=== PATIENT | male | born 1945 | race Caucasian/White ===

== ENCOUNTER 2020-02-06 08:42 | Outpatient (REF) | payer MEDICARE, SELFPAY ==
--- NOTE | 2020-02-06 | US_ITS ---
EXAMINATION: US COMPLETE ABDOMEN WITH LIVER ELASTOGRAPHY CLINICAL INFORMATION: NAFLD. COMPARISON: CT abdomen and pelvis 12/29/2006 TECHNIQUE: Real-time imaging of the abdominal viscera. Noninvasive ultrasound liver fibrosis assessment is performed using Jane ElastPQ point quantification shear wave elastography (pSWE) with a 5 MHz transducer. Multiple elastography samples are obtained. FINDINGS: PANCREAS: Normal. The visualized pancreatic head and body are normal in appearance. The remainder of the pancreas is obscured from visualization by the overlying bowel gas. ABDOMINAL AORTA: The proximal, middle and distal aortic segments are normal in caliber. INFERIOR VENA CAVA: Visualized portions are normal. LIVER: The liver demonstrates normal size, contour and increased echogenicity with areas of focal fatty sparing. No focal lesion or intrahepatic biliary duct dilatation. The right lobe measures 15.0 cm in length. The left lobe measures 13.4 cm in length. There is normal hepatopedal flow seen in the portal vein on Doppler exam. Shear wave elastography provides a median stiffness of 1.09 m/s (reference: normal median stiffness is 0.81 - 1.22 m/s). The IQR/median stiffness to assess sampling precision is 0.47 (reference: optimal IQR/median stiffness is under 0.3). GALLBLADDER: Normal. The gallbladder is physiologically distended without evidence of stones, sludge, polyps, wall thickening, or pericholecystic fluid. COMMON BILE DUCT: Normal in caliber measuring 0.8 cm in diameter. RIGHT KIDNEY: There is an anechoic cyst in the upper pole measuring 1.2 x 1.3 x 1.5 cm. No hydronephrosis. No renal calculi or focal parenchymal lesions. The kidney measures 11.5 cm in maximum dimension. LEFT KIDNEY: There is an anechoic cyst in the upper pole measuring 0.6 x 0.4 x 0.6 cm. No hydronephrosis. No renal calculi or focal parenchymal lesions. The kidney measures 12.3 cm in maximum dimension. SPLEEN: Normal. The spleen measures 9.1 cm in maximum dimension. FREE FLUID: None. IMPRESSION: 1. Diffuse hepatic steatosis with focal areas of fatty sparing. 2. Bilateral renal cysts without echogenic calculi or hydronephrosis. 3. Elastography: Liver elastography measurements are within normal (METAVIR Stage F0).
[2020-02-06 12:27] LABS: Anion Gap 10 (12-20); Blood Urea Nitrogen 10 mg/dL (9-16); Calcium 8.9 mg/dL (8.4-10.2); Carbon Dioxide 31 mmol/L (22-29); Chloride 103 mmol/L (96-108); Cholesterol 114 mg/dL; Estimated Glomerular Filt Rate > 60; Glucose Random 100 mg/dL (60-115); HDL Cholesterol 53 mg/dL; LDL Cholesterol Calculated 51 mg/dl; Potassium 4.4 mmol/l (3.3-5.1); Sodium 140 mmol/L (135-145); Triglycerides 51 mg/dL
[2020-02-06 12:33] LABS: Creatinine Urine 102.72 mg/dL; Microalbumin Urine < 5.0 mg/L
== END 2020-02-06 08:43 | disposition home or self-care (01) ==
LOC: HO.US 08:42
PROVIDERS: PCP Nurse Practitioner Family; Visit Provider Physician Assistant
DX: K76.0 Fatty (change of) liver, not elsewhere classified (principal)
CPT/HCPCS: 76705; 76981; 80048; 80061; 82043

== ENCOUNTER → 2020-05-12 08:43 | Outpatient (BNVA) | payer MEDICARE, SELFPAY | PROVIDERS: PCP Nurse Practitioner Family; Visit Provider Physician Assistant | DX: E80.6 Other disorders of bilirubin metabolism (principal) | CPT/HCPCS: 99212 ==

== ENCOUNTER 2020-08-11 10:58 | Outpatient (REF) | payer MEDICARE, SELFPAY ==
[2020-08-11 13:55] LABS: MANUAL DIFF FLAG NO
[2020-08-11 14:02] LABS: Basophils Absolute Auto 0.1 X10*3/uL (0.0-0.2); Basophils Percent Auto 0.8 % (0-2); Eosinophils Absolute Auto 0.2 X10*3/uL (0.0-0.4); Eosinophils Percent Auto 2.7 % (0-4); Hematocrit 44.6 % (42-52); Hemoglobin 14.5 g/dl (14.0-18.0); Imm Gran Abs Auto 0.02 X10*3/uL (0.00-0.03); Imm Gran Pct Auto 0.3 % (0.0-0.4); Lymphocytes Absolute Auto 1.5 X10*3/uL (1.2-4.9); Lymphocytes Percent Auto 19.4 % (20-40); Mean Corpuscular HGB Conc 32.5 g/dl (31.0-36.0); Mean Corpuscular Hemoglobin 30.3 pg (27.0-33.0); Mean Corpuscular Volume 93.3 fL (80-98); Mean Platelet Volume 10.3 fL (9.4-12.4); Monocytes Absolute Auto 0.6 X10*3/uL (0.1-1.2); Monocytes Percent Auto 7.6 % (2-11); Neutrophils Absolute Auto 5.2 X10*3/uL (2.0-8.3); Neutrophils Percent Auto 69.2 % (45-73); Platelet Count 276 X10*3/uL (160-400); Red Blood Count 4.78 X10*6/uL (4.60-5.80); Red Cell Distribution Width 12.9 % (11.0-16.0); White Blood Count 7.5 X10*3/uL (4.8-10.8)
[2020-08-11 14:16] LABS: Estimated Average Glucose 105 mg/dL; Hemoglobin A1c % 5.3 %
[2020-08-11 14:38] LABS: Alanine Aminotransferase 15 U/L (0-40); Albumin Level 4.2 g/dL (3.5-5.0); Alkaline Phosphatase 65 U/L (39-117); Anion Gap 14 (12-20); Aspartate Amino Transferase 18 U/L (5-37); Bilirubin Total 1.5 mg/dL (0.0-1.0); Blood Urea Nitrogen 10 mg/dL (9-16); Carbon Dioxide 27 mmol/L (22-29); Chloride 103 mmol/L (96-108); Cholesterol 117 mg/dL; Estimated Glomerular Filt Rate > 60; Glucose Fasting 106 mg/dL (60-99); HDL Cholesterol 55 mg/dL; LDL Cholesterol Calculated 52 mg/dl; Potassium 4.2 mmol/L (3.3-5.1); Sodium 140 mmol/L (135-145); Total Protein 7.2 g/dL (6.5-8.0); Triglycerides 50 mg/dL
[2020-08-11 14:50] LABS: Bilirubin Direct 0.7 mg/dL (0.0-0.5)
[2020-08-11 15:05] LABS: TSH reflex Free T4 0.54 uIU/mL (0.32-4.0)
== END 2020-08-11 10:59 | disposition home or self-care (01) ==
LOC: HO.HMGCLDS 10:58
PROVIDERS: PCP Nurse Practitioner Family; Visit Provider Physician Assistant
DX: R10.11 Right upper quadrant pain (principal); E11.9 Type 2 diabetes mellitus without complications; E80.6 Other disorders of bilirubin metabolism; R74.01 Elevation of levels of liver transaminase levels
CPT/HCPCS: 36415; 80053; 80061; 82248; 83036; 84443; 85025

== ENCOUNTER → 2020-08-25 08:17 | Outpatient (BNVA) | payer MEDICARE, SELFPAY | PROVIDERS: Visit Provider Physician Assistant | DX: Z13.89 Encounter for screening for other disorder (principal) | CPT/HCPCS: 99212 ==

== ENCOUNTER 2020-10-29 08:35 | Outpatient (REF) | payer MEDICARE, SELFPAY ==
[2020-10-29 12:23] LABS: Prostate Specific Antigen Scr 1.06 ng/mL (<0.05-4.0)
== END 2020-10-29 08:36 | disposition home or self-care (01) ==
LOC: HO.HMGCLDS 08:35
PROVIDERS: PCP Nurse Practitioner Family; Visit Provider Nurse Practitioner Family
DX: Z12.5 Encounter for screening for malignant neoplasm of prostate (principal)
CPT/HCPCS: 36415; 84153

== ENCOUNTER 2020-11-24 11:08 | Outpatient (REF) | payer MEDICARE, SELFPAY ==
[2020-11-24 14:09] LABS: MANUAL DIFF FLAG NO
[2020-11-24 14:15] LABS: Basophils Absolute Auto 0.1 X10*3/uL (0.0-0.2); Basophils Percent Auto 0.8 % (0-2); Eosinophils Absolute Auto 0.2 X10*3/uL (0.0-0.4); Eosinophils Percent Auto 3.6 % (0-4); Hematocrit 42.1 % (42-52); Hemoglobin 13.6 g/dl (14.0-18.0); Imm Gran Abs Auto 0.02 X10*3/uL (0.00-0.03); Imm Gran Pct Auto 0.3 % (0.0-0.4); Lymphocytes Absolute Auto 1.4 X10*3/uL (1.2-4.9); Lymphocytes Percent Auto 22.2 % (20-40); Mean Corpuscular HGB Conc 32.3 g/dl (31.0-36.0); Mean Corpuscular Volume 92.9 fL (80-98); Mean Platelet Volume 10.7 fL (9.4-12.4); Monocytes Absolute Auto 0.5 X10*3/uL (0.1-1.2); Monocytes Percent Auto 8.1 % (2-11); Platelet Count 249 X10*3/uL (160-400); Red Blood Count 4.53 X10*6/uL (4.60-5.80); Red Cell Distribution Width 13.4 % (11.0-16.0); White Blood Count 6.2 X10*3/uL (4.8-10.8)
[2020-11-24 14:37] LABS: Bilirubin Direct 0.5 mg/dL (0.0-0.5)
[2020-11-25 04:42] LABS: HBc Num1 0.06 S/CO (0.00-0.79); Hepatitis B Core Antibody Nonreactive (Nonreactive); Hepatitis B Surface Antigen Negative (Negative); ~HepC Num1 0.07 S/CO (0.00-0.79); ~Hepatitis C Antibody Nonreactive (Nonreactive)
[2020-11-25 04:43] LABS: HBS Num1 0.34 mIU/mL (0-7.99); ~Hepatitis B Surface Antibody NONREACTIVE (Nonreactive)
[2020-11-26 08:08] LABS: Hepatitis A Antibody IgM 0.15 Index (0-0.79); ~Hepatitis A Antibody IgM Nonreactive (Nonreactive)
[2020-11-26 13:03] LABS: Anti Nuclear Antibody Screen NEGATIVE (NEGATIVE)
[2020-11-26 15:36] LABS: Mitochondrial Antibodies NEGATIVE (NEGATIVE)
[2020-11-27 11:55] LABS: Smooth Muscle Antibody <20 U (<20)
== END 2020-11-24 11:09 | disposition home or self-care (01) ==
LOC: HO.HMGCLDS 11:08
PROVIDERS: PCP Nurse Practitioner Family; Visit Provider Physician Assistant
DX: E80.6 Other disorders of bilirubin metabolism (principal); R74.01 Elevation of levels of liver transaminase levels; R79.89 Other specified abnormal findings of blood chemistry; R74.8 Abnormal levels of other serum enzymes
CPT/HCPCS: 36415; 82248; 85025; 86038; 86039; 86255; 86256; 86704; 86706; 86709; 86803; 87340

== ENCOUNTER → 2020-12-01 08:47 | Outpatient (BNVA) | payer MEDICARE, SELFPAY | PROVIDERS: PCP Nurse Practitioner Family; Visit Provider Physician Assistant | CPT/HCPCS: Q3014 ==

== ENCOUNTER 2020-12-05 09:01 | Outpatient (REF) | payer MEDICARE, SELFPAY ==
--- NOTE | ~2020-12-05 | MM_ITS ---
EXAMINATION: BONE DENSITOMETRY CLINICAL INDICATION: Encounter for screening for osteoporosis. COMPARISON: None (current study represents initial baseline exam). TECHNIQUE: Using a AbraResto DXA System (software version: 13.1) manufactured by [employer], dual-energy x-ray absorptiometry was performed of the lumbar spine and left hip. The images are of good technical quality. Summary results are attached. FINDINGS: AP SPINE L1-L4: There are multilevel degenerative changes lumbar spine which may cause over estimation of the lumbar bone mineral density. BMD 1.820 g/cm2, Z-score 5.2, T-score 5.0, normal. LEFT FEMUR, NECK: BMD 1.216 g/cm2, Z-score 2.2, T-score 1.1, normal. LEFT FEMUR, TOTAL: BMD 1.426 g/cm2, Z-score 2.9, T-score 2.3, normal. IDENTIFIED RISK FACTORS: None listed. HISTORY OF FRACTURE: None listed. MEDICATIONS: None listed. MM/XR DEXA axial skeleton IMPRESSION: 1. DIAGNOSIS: Normal bone density based on the lowest T-score value of 1.1 in the femoral neck applying World Health Organization criteria. 2. 10-YEAR FRACTURE RISK PREDICTION, FRAX: According to the guidelines, FRAX calculation should only be performed on patients in the osteopenia bone density category. Therefore, FRAX was not performed on this patient. 3. Treatment Recommendations: NOF guidelines recommend consideration for treatment in postmenopausal women and men age 50 and older presenting with the following: -A hip or vertebral (clinical or morphometric) fracture. -T-score less than or equal to -2.5 at the femoral neck or spine after appropriate evaluation to exclude secondary causes. -Low bone mass at the hip or spine and a 10-year fracture probability by FRAX of greater than or equal to 3% for hip fracture or greater than or equal to 20% for major osteoporotic fracture based on the [place] adapted WHO algorithm. 4. Other Recommendations: All treatment decisions require clinical judgment and consideration of individual patient factors, including patient preferences, comorbidities, previous drug use, risk factors not captured in the FRAX model (e.g. frailty, falls, vitamin D deficiency, increased bone turnover, interval significant decline in bone density) and possible under or overestimation of fracture risk by FRAX. FUTURE SCAN RECOMMENDATION: People with diagnosed cases of osteoporosis or at high risk for fracture should have regular bone mineral density tests. For patients eligible for Medicare, routine testing is allowed once every 2 years. The testing frequency can be increased to one year for patients who have rapidly progressing disease, those who are receiving or discontinuing medical therapy to restore bone mass, or have additional risk factors.
== END 2020-12-05 09:02 | disposition home or self-care (01) ==
LOC: HO.MAMMO 09:01
PROVIDERS: PCP Nurse Practitioner Family; Visit Provider Nurse Practitioner Family
DX: M81.8 Other osteoporosis without current pathological fracture (principal)
CPT/HCPCS: 77080

== ENCOUNTER 2021-02-20 10:30 | Outpatient (REF) | payer MEDICARE, SELFPAY ==
[2021-02-20 11:41] LABS: Appearance Urine CLEAR; Color Urine YELLOW; Glucose Urine UA NEG (NEG); Leukocyte Esterase Urine NEG (NEG); Nitrite Urine NEG (NEG); PH 5.5 (5.0-8.0); Specific Gravity - Urine 1.025 (1.005-1.025); UACC Culture Trigger NO; Urine Blood 2+ (NEG); Urine Ketones NEG (NEG); Urine Protein NEG (NEG-TRACE)
[2021-02-20 12:05] LABS: Estimated Average Glucose 108 mg/dL; Hemoglobin A1c % 5.4 %
[2021-02-20 12:11] LABS: Alanine Aminotransferase 14 U/L (0-40); Albumin Level 4.2 g/dL (3.5-5.0); Alkaline Phosphatase 52 U/L (39-117); Anion Gap 10 (12-20); Aspartate Amino Transferase 17 U/L (5-37); Bilirubin Total 1.4 mg/dL (0.0-1.0); Blood Urea Nitrogen 11 mg/dL (9-16); Calcium 8.9 mg/dL (8.4-10.2); Carbon Dioxide 33 mmol/L (22-29); Chloride 103 mmol/L (96-108); Cholesterol 122 mg/dL; Estimated Glomerular Filt Rate > 60; Glucose Fasting 109 mg/dL (60-99); HDL Cholesterol 57 mg/dL; LDL Cholesterol Calculated 56 mg/dl; Potassium 4.2 mmol/L (3.3-5.1); Sodium 142 mmol/L (135-145); Total Protein 7.1 g/dL (6.5-8.0); Triglycerides 48 mg/dL; WBC Urine 0 /HPF (0-4)
[2021-02-20 12:18] LABS: TSH reflex Free T4 0.99 uIU/mL (0.32-4.0)
[2021-02-20 12:30] LABS: Creatinine Urine 166.39 mg/dL; Microalbum/Creatinine Ratio Ur 3.6 ug/mg cr
== END 2021-02-20 10:31 | disposition home or self-care (01) ==
LOC: HO.HMGCLDS 10:30
PROVIDERS: PCP Nurse Practitioner Family; Visit Provider Nurse Practitioner Family
DX: E11.9 Type 2 diabetes mellitus without complications (principal)
CPT/HCPCS: 36415; 80053; 80061; 81001; 82043; 83036; 84443

== ENCOUNTER 2021-04-13 14:07 | Outpatient (REF) | payer MEDICARE, SELFPAY ==
[2021-04-13 14:49] LABS: Influenza A PCR NEGATIVE (Negative); Influenza B PCR NEGATIVE (Negative); Resp Syncy Virus RNA Qual PCR NEGATIVE (Negative); SARS COV2 PCR INHOUSE POSITIVE (Negative)
== END 2021-04-13 14:08 | disposition home or self-care (01) ==
LOC: HO.LNP 14:07
PROVIDERS: Visit Provider Internal Medicine
DX: Z20.822 Contact with and (suspected) exposure to COVID-19 (principal); R43.9 Unspecified disturbances of smell and taste
CPT/HCPCS: 0241U

== ENCOUNTER → 2021-05-18 09:13 | Outpatient (BNVA) | payer MEDICARE, SELFPAY | PROVIDERS: PCP Nurse Practitioner Family; Referring Provider Nurse Practitioner Family; Visit Provider Physician Assistant | DX: E80.6 Other disorders of bilirubin metabolism (principal); K59.00 Constipation, unspecified | CPT/HCPCS: 99212 ==

== ENCOUNTER 2021-09-11 10:12 | Outpatient (REF) | payer MEDICARE, SELFPAY ==
[2021-09-11 16:39] LABS: Urine Cytology See Pathology rpt
== END 2021-09-11 10:13 | disposition home or self-care (01) ==
LOC: HO.LAB 10:12
PROVIDERS: PCP Nurse Practitioner Family
DX: N28.1 Cyst of kidney, acquired (principal); R31.9 Hematuria, unspecified
CPT/HCPCS: 88112; 99202

== ENCOUNTER 2021-10-15 09:26 | Outpatient (REF) | payer MEDICARE, SELFPAY ==
[2021-10-15 11:45] LABS: Appearance Urine HAZY; Color Urine YELLOW; Glucose Urine UA NEG (NEG); Leukocyte Esterase Urine NEG (NEG); Nitrite Urine NEG (NEG); PH 5.5 (5.0-8.0); Specific Gravity - Urine 1.025 (1.005-1.025); UACC Culture Trigger NO; Urine Blood 1+ (NEG); Urine Ketones NEG (NEG); Urine Protein NEG (NEG-TRACE)
[2021-10-15 11:57] LABS: Squamous Epithelial Cell Urine TRACE /LPF; WBC Urine 0 /HPF (0-4)
[2021-10-15 12:08] LABS: Estimated Average Glucose 103 mg/dL; Hemoglobin A1c % 5.2 %
[2021-10-15 12:34] LABS: Prostate Specific Antigen Scr 0.77 ng/mL (<0.05-4.0); TSH reflex Free T4 1.63 uIU/mL (0.32-4.0)
[2021-10-15 12:44] LABS: Alanine Aminotransferase 11 U/L (0-40); Alkaline Phosphatase 46 U/L (39-117); Anion Gap 9 (12-20); Aspartate Amino Transferase 15 U/L (5-37); Blood Urea Nitrogen 13 mg/dL (9-16); Calcium 9.4 mg/dL (8.4-10.2); Carbon Dioxide 30 mmol/L (22-29); Chloride 107 mmol/L (96-108); Cholesterol 128 mg/dL; Estimated Glomerular Filt Rate > 60; Glucose Fasting 106 mg/dL (60-99); HDL Cholesterol 58 mg/dL; LDL Cholesterol Calculated 58 mg/dl; Potassium 4.4 mmol/L (3.3-5.1); Sodium 142 mmol/L (135-145); Total Protein 6.8 g/dL (6.5-8.0); Triglycerides 62 mg/dL
== END 2021-10-15 09:27 | disposition home or self-care (01) ==
LOC: HO.HMGCLDS 09:26
PROVIDERS: Visit Provider Nurse Practitioner Family
DX: Z12.5 Encounter for screening for malignant neoplasm of prostate (principal); E11.9 Type 2 diabetes mellitus without complications
CPT/HCPCS: 36415; 80053; 80061; 81001; 83036; 84153; 84443

== ENCOUNTER 2021-10-22 14:19 | Outpatient (REF) | payer MEDICARE, SELFPAY ==
--- NOTE | ~2021-10-22 | US_ITS ---
EXAMINATION: US RETROPERITONEAL LIMITED (RENAL ONLY) CLINICAL INFORMATION: Hematuria, unspecified. COMPARISON: US abdomen complete with liver elastography 02/06/2020. TECHNIQUE: Real-time imaging of the kidneys. FINDINGS: RIGHT KIDNEY: 11.4 x 5.03 x 6.39 cm (SAG x AP x TRV). The kidney is normal in size, contour, and echogenicity. Renal cortical thickness is normal. No renal calculi or hydronephrosis. Benign-appearing 1.6 cm renal cyst, no imaging follow-up recommended. LEFT KIDNEY: 11.9 x 5.6 x 5.4 cm (SAG x AP x TRV). The kidney is normal in size, contour, and echogenicity. Renal cortical thickness is normal. No renal calculi or hydronephrosis. Benign-appearing 1.1 cm renal cyst, no imaging follow-up recommended. US/US renal BI IMPRESSION: No hydronephrosis or nephrolithiasis..
== END 2021-10-22 14:20 | disposition home or self-care (01) ==
LOC: HO.HMGCX 14:19
DX: R31.9 Hematuria, unspecified (principal)
CPT/HCPCS: 76775

== ENCOUNTER → 2021-10-29 11:49 | Outpatient (BNVA) | payer MEDICARE, SELFPAY | PROVIDERS: PCP Nurse Practitioner Family | DX: R31.9 Hematuria, unspecified (principal) | CPT/HCPCS: Q3014 ==

== ENCOUNTER → 2021-11-12 09:22 | Outpatient (BNVA) | payer MEDICARE, SELFPAY | PROVIDERS: PCP Nurse Practitioner Family; Referring Provider Nurse Practitioner Family; Visit Provider Physician Assistant | DX: K59.00 Constipation, unspecified (principal); E80.6 Other disorders of bilirubin metabolism | CPT/HCPCS: 99212 ==

== ENCOUNTER → 2022-02-11 09:18 | Outpatient (BNVA) | payer MEDICARE, SELFPAY | PROVIDERS: PCP Nurse Practitioner Family; Visit Provider Physician Assistant | DX: K59.00 Constipation, unspecified (principal) | CPT/HCPCS: 99212 ==

== ENCOUNTER 2022-03-24 09:41 | Outpatient (REF) | payer MEDICARE, SELFPAY ==
[2022-03-24 11:17] LABS: MANUAL DIFF FLAG NO
[2022-03-24 11:34] LABS: Appearance Urine Clear; Color Urine Yellow; Glucose Urine UA Negative (Negative); Leukocyte Esterase Urine Negative (Negative); Nitrite Urine Negative (Negative); PH 5.5 (5.0-9.0); UMIC TRIGGER UACC YES; Urine Blood Trace (Negative); Urine Ketones Negative (Negative); Urine Protein Negative (Neg-Trace)
[2022-03-24 11:41] LABS: Bacteria Urine None Seen (None Seen); Hyaline Casts Urine 0-2 /LPF (0-2); RBC Urine 0-2 /HPF (0-2); Squamous Epithelial Cell Urine 0-2 /HPF (0-2); WBC Urine 0-5 /HPF (0-5)
[2022-03-24 11:42] LABS: Basophils Absolute Auto 0.1 X10*3/uL (0.0-0.2); Basophils Percent Auto 1.3 % (0-2); Eosinophils Absolute Auto 0.4 X10*3/uL (0.0-0.4); Eosinophils Percent Auto 5.6 % (0-4); Hematocrit 42.7 % (42.0-52.0); Hemoglobin 13.7 g/dl (14.0-18.0); Imm Gran Abs Auto 0.02 X10*3/uL (0.00-0.03); Imm Gran Pct Auto 0.3 % (0.0-0.4); Lymphocytes Absolute Auto 1.9 X10*3/uL (1.2-4.9); Lymphocytes Percent Auto 30.5 % (20-40); Mean Corpuscular HGB Conc 32.1 g/dl (31.0-36.0); Mean Corpuscular Hemoglobin 29.9 pg (27.0-33.0); Mean Corpuscular Volume 93.2 fL (80.0-98.0); Mean Platelet Volume 10.3 fL (9.4-12.4); Monocytes Absolute Auto 0.5 X10*3/uL (0.1-1.2); Monocytes Percent Auto 8.5 % (2-11); Neutrophils Absolute Auto 3.3 x10*3/uL (2.0-8.3); Neutrophils Percent Auto 53.8 % (45-73); Platelet Count 266 X10*3/uL (160-400); Red Blood Count 4.58 X10*6/uL (4.60-5.80); Red Cell Distribution Width 13.6 % (11.0-16.0); White Blood Count 6.2 X10*3/uL (4.8-10.8)
[2022-03-24 11:43] LABS: Estimated Average Glucose 111 mg/dL; Hemoglobin A1c % 5.5 %
[2022-03-24 12:41] LABS: Creatinine Urine 145.47 mg/dL; Microalbum/Creatinine Ratio Ur 3.4 ug/mg cr
[2022-03-24 12:55] LABS: Alanine Aminotransferase 13 U/L (0-40); Alkaline Phosphatase 46 U/L (39-117); Anion Gap 10 (12-20); Aspartate Amino Transferase 15 U/L (5-37); Bilirubin Total 1.1 mg/dL (0.0-1.0); Blood Urea Nitrogen 12 mg/dL (9-16); Calcium 9.2 mg/dL (8.4-10.2); Carbon Dioxide 32 mmol/L (22-29); Chloride 105 mmol/L (96-108); Cholesterol 124 mg/dL; Estimated Glomerular Filt Rate > 60; Glucose Fasting 109 mg/dL (60-99); HDL Cholesterol 59 mg/dL; LDL Cholesterol Calculated 50 mg/dl; Potassium 4.2 mmol/L (3.3-5.1); Sodium 143 mmol/L (135-145); Total Protein 6.7 g/dL (6.5-8.0); Triglycerides 76 mg/dL
== END 2022-03-24 09:42 | disposition home or self-care (01) ==
LOC: HO.HMGCLDS 09:41
PROVIDERS: PCP Nurse Practitioner Family; Visit Provider Nurse Practitioner Family
DX: E11.9 Type 2 diabetes mellitus without complications (principal)
CPT/HCPCS: 36415; 80053; 80061; 81001; 82043; 83036; 84443; 85025

== ENCOUNTER → 2022-04-22 08:10 | Outpatient (REF) | payer MEDICARE, SELFPAY ==
--- NOTE | 2022-04-22 08:16 | CA_ITS ---
Transthoracic Echocardiogram Patient (Last, First, Middle): Hunter Gonzalez P Gender: Male Date of : 1945 Age: 76 Procedure Date: 04/22/2022 Procedure Type: Transthoracic Echocardiogram Location: OP Height: 175.26 cm Weight: 91.63 kg BSA: 2.07 m2 Heart Rate: bpm BP: 120 / 75 mmHg Intelligence Senior Sergeant: TO Referring MD: Torey Helton [facility] Symptoms: R01.1 - Cardiac murmur, unspecified Study Quality: Fair ECG Rhythm: Sinus Conclusions: - The left ventricular systolic function is normal. The calculated ejection fraction is 59% by biplane method. - The basal inferior segment is akinetic. - No obvious valvular pathology seen on this study. Findings Left Ventricle Normal left ventricular cavity size. There is normal left ventricular wall thickness. The left ventricular systolic function is normal. The calculated ejection fraction is 59% by biplane method. There is no evidence of regional wall motion abnormalities. Diastolic function is normal for age. Wall Motion Rest Echo Findings The basal inferior segment is akinetic. Right Ventricle Normal right ventricular cavity size and systolic function. Atria The left atrium is mildly dilated. The right atrium is normal in size. Aortic Valve There is a normal trileaflet aortic valve. There is mild calcification of the aortic valve. There is no aortic valve stenosis. There is no aortic valve regurgitation. Mitral Valve There is mild anterior and posterior mitral leaflet thickening. There is no mitral valve regurgitation. There is no mitral valve stenosis. Pulmonic Valve The pulmonic valve is likely normal. There is trace pulmonic valve regurgitation. Tricuspid Valve Normal tricuspid valve structure. There is trace tricuspid valve regurgitation. There is no evidence of pulmonary hypertension. Great Vessels The asc aorta is normal in size. Small plaque is seen in the aortic annulus, sinuses of Valsalva, and ascending aorta. Venous The inferior vena cava is normal in size and collapses greater than 50% with inspiration. There is evidence of a dilated coronary sinus. Pericardium/Pleural There is no evidence of pericardial effusion. Prior Study Comparison Changes noted compared to prior study dated: 05/05/2017. see comment on wall motion. Recommendations, Care & Conclusions No obvious valvular pathology seen on this study. Measurements 2D Linear Measurements IVSd: 0.98 0.6-0.9/0.6-1.0 cm LVIDd: 5.68 3.9-5.3/4.2-5.9 cm LVIDd Index: 2.74 2.4-3.2/2.2-3.1 cm/m2 LVIDs: 4.01 2.0-3.6 cm LVPWd: 0.81 0.7-1.1 cm LA Diam: 3.90 2.7-3.8/3.0-4.0 cm LAIDs Index: 1.88 1.5-2.3 cm/m2 LV Mass: 242.23 67-162/88-224 g LV Mass Index: 117.02 43-95/49-115 g/m2 LVOT Diam: 2.30 3.0+(-)1.3 cm 2D Systolic Function EF 4C: 59.20 >55% EF 2C: 59.80 >55% EF BiP: 59.40 >55% Mitral Valve MV Pk E: 0.59 MV PK A: 0.66 MV Decel Time: 341.00 E/A: 0.90 E'Lateral: 7.72 E'Medial: 6.20 E/E' Med: 9.50 E/E' Lat: 7.70 PHT: 100.00 MVA PHT: 2.20 Decel [place]: 1.73 Aortic Valve AoV Pk Faustino: 1.15 AoV Mn Faustino: 0.82 AoV VTI: 0.26 AoV Pk Grad: 5.00 Aov Mn Grad: 3.00 RENALDO Cont.VTI: 2.88 LVOT LVOT Pk Faustino: 0.77 LVOT Mn Faustino: 0.52 LVOT VTI: 0.18 LVOT Pk Grad: 2.00 LVOT Mn Grad: 1.00 LVOT Diam: 2.30 LVOT Area: 4.15 Diastolic Function MV Pk E: 0.59 MV Pk A: 0.66 E/A: 0.90 E'Medial: 6.20 E/E' Med: 9.50 E' Laterial: 7.72 E/E' Lat: 7.70 Right Ventricle TAPSE (mm): 24.00 TVS' Faustino: 10.10 Tricuspid Valve TR Pk Faustino: 1.83 TR Pk Grad: 13.00 RA Press: 3.00 RVSP: 16.00 Great Vessels Aorta Sinus of Valsalva: 3.56 2.0-3.[address] [place]: 2.90 1.7-3.4 cm Ao Asc: 3.80 2.1-3.4 cm Updated in Other Vendor System with Status of Final Taz Alves MD electronically signed on 04/24/2022 1:28:52 PM with status of Final
== END ==
LOC: HO.CARD 08:10
PROVIDERS: PCP Nurse Practitioner Family; Visit Provider Nurse Practitioner Family
DX: R01.1 Cardiac murmur, unspecified (principal)
CPT/HCPCS: 93306

== ENCOUNTER 2022-10-11 08:52 | Outpatient (REF) | payer MEDICARE, SELFPAY ==
[2022-10-11 11:28] LABS: Appearance Urine Turbid; Color Urine Yellow; Glucose Urine UA Negative (Negative); Leukocyte Esterase Urine Negative (Negative); Nitrite Urine Negative (Negative); PH 5.5 (5.0-9.0); UMIC TRIGGER UACC YES; Urine Blood Small (1+) (Negative); Urine Ketones Negative (Negative); Urine Protein Negative (Neg-Trace)
[2022-10-11 11:31] LABS: MANUAL DIFF FLAG NO
[2022-10-11 11:33] LABS: Bacteria Urine None Seen (None Seen); Hyaline Casts Urine 0-2 /LPF (0-2); Squamous Epithelial Cell Urine 0-2 /HPF (0-2); WBC Urine 0-5 /HPF (0-5)
[2022-10-11 11:44] LABS: Basophils Absolute Auto 0.1 X10*3/uL (0.0-0.2); Eosinophils Absolute Auto 0.3 X10*3/uL (0.0-0.4); Eosinophils Percent Auto 4.2 % (0-4); Hematocrit 39.2 % (42.0-52.0); Hemoglobin 13.1 g/dl (14.0-18.0); Imm Gran Abs Auto 0.02 X10*3/uL (0.00-0.03); Imm Gran Pct Auto 0.3 % (0.0-0.4); Lymphocytes Absolute Auto 1.8 X10*3/uL (1.2-4.9); Lymphocytes Percent Auto 28.8 % (20-40); Mean Corpuscular HGB Conc 33.4 g/dl (31.0-36.0); Mean Corpuscular Hemoglobin 31.1 pg (27.0-33.0); Mean Corpuscular Volume 93.1 fL (80.0-98.0); Mean Platelet Volume 10.3 fL (9.4-12.4); Monocytes Absolute Auto 0.5 X10*3/uL (0.1-1.2); Neutrophils Absolute Auto 3.6 x10*3/uL (2.0-8.3); Neutrophils Percent Auto 57.7 % (45-73); Platelet Count 225 X10*3/uL (160-400); Red Blood Count 4.21 X10*6/uL (4.60-5.80); Red Cell Distribution Width 13.4 % (11.0-16.0); White Blood Count 6.2 X10*3/uL (4.8-10.8)
[2022-10-11 11:48] LABS: Estimated Average Glucose 100 mg/dL; Hemoglobin A1c % 5.1 %
[2022-10-11 12:17] LABS: Prostate Specific Antigen Scr 1.52 ng/mL (<0.05-4.0)
[2022-10-11 12:20] LABS: Alanine Aminotransferase 13 U/L (0-40); Albumin Level 3.8 g/dL (3.5-5.0); Alkaline Phosphatase 40 U/L (39-117); Anion Gap 12 (12-20); Aspartate Amino Transferase 16 U/L (5-37); Bilirubin Total 2.3 mg/dL (0.0-1.0); Blood Urea Nitrogen 12 mg/dL (9-16); Calcium 9.3 mg/dL (8.4-10.2); Carbon Dioxide 28 mmol/L (22-29); Chloride 107 mmol/L (96-108); Cholesterol 112 mg/dL; Estimated Glomerular Filt Rate > 60; Glucose Fasting 97 mg/dL (60-99); HDL Cholesterol 54 mg/dL; LDL Cholesterol Calculated 40 mg/dl; Potassium 3.7 mmol/L (3.3-5.1); Sodium 143 mmol/L (135-145); Total Protein 6.4 g/dL (6.5-8.0); Triglycerides 93 mg/dL
[2022-10-11 12:27] LABS: TSH reflex Free T4 1.62 uIU/mL (0.32-4.0)
== END 2022-10-11 08:53 | disposition home or self-care (01) ==
LOC: HO.HMGCLDS 08:52
PROVIDERS: PCP Nurse Practitioner Family; Visit Provider Nurse Practitioner Family
DX: E11.9 Type 2 diabetes mellitus without complications (principal); Z12.5 Encounter for screening for malignant neoplasm of prostate
CPT/HCPCS: 36415; 80053; 80061; 81001; 83036; 84153; 84443; 85025

== ENCOUNTER 2022-10-13 09:52 | Outpatient (REF) | payer MEDICARE, SELFPAY ==
--- NOTE | ~2022-10-13 | US_ITS ---
EXAMINATION: US RETROPERITONEAL LIMITED (RENAL ONLY) CLINICAL INFORMATION: Cyst of kidney, acquired. COMPARISON: Ultrasound retroperitoneal limited (renal only) 10/22/2021. US abdomen complete with liver elastography 02/06/2020. CT abdomen and pelvis without and with contrast 07/17/2014. TECHNIQUE: Real-time imaging of the kidneys. FINDINGS: RIGHT KIDNEY: 11.7 x 4.6 x 6.1 cm (SAG x AP x TRV). The kidney is normal in size, contour, and echogenicity. Renal cortical thickness is normal. No renal calculi or hydronephrosis. Upper pole cyst measures 1.6 x 1.5 x 1.3 cm. LEFT KIDNEY: 12.2 x 5.2 x 5.0 cm (SAG x AP x TRV). The kidney is normal in size, contour, and echogenicity. Renal cortical thickness is normal. No renal calculi or hydronephrosis. Upper pole cyst measures 1.1 x 1.0 x 1.2 cm. Upper pole cyst measures 0.6 x 0.5 x 0.5 cm. US/US renal BI IMPRESSION: Bilateral renal cysts. No suspicious features.
== END 2022-10-13 09:53 | disposition home or self-care (01) ==
LOC: HO.HMGCX 09:52
PROVIDERS: PCP Nurse Practitioner Family; Visit Provider Nurse Practitioner Family
DX: N28.1 Cyst of kidney, acquired (principal)
CPT/HCPCS: 76775

== ENCOUNTER 2022-10-29 09:45 | Outpatient (AMB) | payer MEDICARE, SELFPAY ==
--- NOTE | 2022-10-29 10:03 | A.OFFVIS_ITS ---
Intake Intake Visit Reasons: 1 year follow up with US(SET) Intake Note: Patient is present for follow up hematuria/renal ultrasound (imaging 10/13/22) Urology Medications: Tamsulosin Blood Thinner: Aspirin Cherry Pitter Required: No Accompanied by: Self / Same As Patient Allergies No Known Allergies [No Known Allergies*] Allergy (Verified 10/31/22 16:13) Medication List - Last Reconciled 10/31/22 by AN Patrick- aspirin (Adult Aspirin Regimen) 81 mg PO DAILY atorvastatin 10 mg PO DAILY 90 days blood-glucose meter (FreeStyle Lite Meter kit) As directed docusate sodium (Colace) 200 mg (2 x 100 mg) PO BEDTIME losartan 50 mg PO DAILY 90 days sennosides (senna) 8.6 mg PO BEDTIME PRN tamsulosin 0.4 mg PO DAILY 90 days HPI HPI Comments History of Present Illness Details Hunter is a very pleasant 76-year-old male patient of Dr. Helton. He has a past medical history of constipation, depression, anxiety, diabetes, Gilbert's disease, hyperbilirubinemia, and obesity. He presents to the office today for follow-up of his bilateral renal cyst and microscopic hematuria. In discussion with the patient today reports to be doing and feeling well. He reports to be happy with his current voiding parameters on 0.4 mg of Flomax daily. He discusses his daily visit to the [facility]. He discusses singing to his lady friend Susana while at the [facility]. He discusses losing his 6 years ago and how he has 2 children and 3 grandchildren. 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 Recent renal imaging results reviewed with the patient today. Bilateral renal cysts. No hydronephrosis or calculi noted. Right kidney with upper pole cyst measuring 1.6 x 1.5 x 1.3 cm. Left kidney with upper pole cyst measuring 1.1 x 1.0 x 1.2 cm and another upper pole cyst that measures 0.6 x 0.5 x 0.5 cm. No suspicious features per radiology report. When asked patient denies urinary urgency, urinary frequency, incontinence, nocturia, hematuria, dysuria, foul smelling urine, changes to urinary stream, flank pain, fever, and or chills. In office urinalysis results reviewed with the patient today. Microscopic hematuria noted will send for urine cytology. Patient denies any known chemical exposure. He does report a smoking history however reports have quit approximately 15 years ago. Discussed completion of microscopic hematuria workup with in office cystoscopy however patient declines at this time. Discussed at length potential causes for microscopic hematuria. In review of patient's chart it appears PSAs are as follows... 07/05--0.9 11/04--0.7 PFSH Medical History Constipation Depression with anxiety Diabetes Se[place] disease Hyperbilirubinemia Obesity Renal cyst, left Surgical History No pertinent past surgical history Family History Father Kidney failure Heart failure Mother No problems noted. Brother Diabetes mellitus HTN (hypertension) Brother No problems noted. Brother No problems noted. Sister No problems noted. Daughter No problems noted. Social History Household Members Other:: 3 years Housing: House Alcohol intake: current Alcohol intake frequency: a few times a month Alcohol type: beer Patient Tobacco Use Status: Former Tobacco user e-Cigarette/Vaping Use: Never Used Second Hand Smoke Exposure: No Current occupational status: retired Current occupation: [employer] Cognitive needs: No Hearing needs: No Vision needs: No Review of Systems Const Reports as per HPI Eyes Reports no additional complaints ENT Reports no additional complaints Card Reports no additional complaints Resp Reports no additional complaints GI Reports as per HPI Reports as per HPI Neuro Reports no additional complaints Psych Reports as per HPI Endo Reports as per HPI Physical Exam Const General: cooperative, healthy appearing, comfortable, no acute distress, well developed, alert and awake Orientation/consciousness: patient oriented x3 Limitations: no limitations HEENT Head: Yes normal to inspection, Yes normocephalic and Yes atraumatic Ears: hearing grossly normal bilaterally Eyes General: appearance normal, both eyes and all related structures Neck Neck: Yes normal visual inspection and Yes trachea midline Chest Chest palpation & inspection: normal inspection of the chest Resp Effort & Inspection: normal respiratory effort and able to speak in complete sentences Cardio Rate: regular rate GI Inspection: Yes normal to inspection General: Yes no CVA tenderness Back/Spine/Pelvis Back: no CVA tenderness Skin General skin exam: no rashes or lesions noted Neuro General: patient oriented x3 Extrem General: Yes normal to inspection Psych Appearance: grossly normal and well kempt Mental Status: mental status grossly normal Speech and movement: Normal speech and movement present and Clear speech present Affect: normal affect Attitude: cooperative Thought process: Normal thought process present Thought content: Normal thought content present Insight: Fair insight present (Psych) Judgement: Fair judgement present (Psych) Results AMB Urinalysis, Automated UA Leukoctes 0 Carolyn/uL Last Edit by [employer] on 10/29/22 10:15 UA Nitrite Last Edit by [employer] on 10/29/22 10:15 UA Urobilinogen 0.2 mg/dL Last Edit by [employer] on 10/29/22 10:15 UA Protein 0 mg/dL Last Edit by [employer] on 10/29/22 10:15 UA pH 6.0 Last Edit by [employer] on 10/29/22 10:15 UA Blood 25 Pineda/uL Last Edit by [employer] on 10/29/22 10:15 UA Specific [place] 1.025 Last Edit by [employer] on 10/29/22 10:15 UA Ketone Last Edit by [employer] on 10/29/22 10:15 UA Bilirubin 0 mg/dL Last Edit by [employer] on 10/29/22 10:15 UA Glucose 0 mg/dL Last Edit by [employer] on 10/29/22 10:15 Results Reviewed Results Reviewed: Laboratory Last Values Urine pH (Auto) 6.0 10/29/22 10:05 Specific [place] (Auto) 1.025 10/29/22 10:05 Urine Protein (Auto) 0 mg/dL 10/29/22 10:05 Glucose (UA)(Auto) 0 mg/dL 10/29/22 10:05 Urine Blood (Auto) 25 Pineda/uL 10/29/22 10:05 Urine Bilirubin (Auto) 0 mg/dL 10/29/22 10:05 Urine Urobilinogen (Auto) 0.2 mg/dL 10/29/22 10:05 Leukocyte Esterase (Auto) 0 Carolyn/uL 10/29/22 10:05 Date of Service: 10/13/22 EXAMINATION: US RETROPERITONEAL LIMITED (RENAL ONLY) FINDINGS: RIGHT KIDNEY: 11.7 x 4.6 x 6.1 cm (SAG x AP x TRV). The kidney is normal in size, contour, and echogenicity. Renal cortical thickness is normal. No renal calculi or hydronephrosis. Upper pole cyst measures 1.6 x 1.5 x 1.3 cm. LEFT KIDNEY: 12.2 x 5.2 x 5.0 cm (SAG x AP x TRV). The kidney is normal in size, contour, and echogenicity. Renal cortical thickness is normal. No renal calculi or hydronephrosis. Upper pole cyst measures 1.1 x 1.0 x 1.2 cm. Upper pole cyst measures 0.6 x 0.5 x 0.5 cm. IMPRESSION: Bilateral renal cysts. No suspicious features. Assessment & Plan Assessment & Plan (1) Bilateral renal cysts: Code(s): N28.1 - Cyst of kidney, acquired (2) Microhematuria: Code(s): R31.29 - Other microscopic hematuria Plan In office urinalysis results reviewed with the patient today; as noted above; will send for urine cytology Discussed recent renal imaging results with the patient today; as noted above Discussed further microscopic hematuria workup with in office cystoscopy; however patient declines Discussed at length potential causes for microscopic hematuria. Patient reports to be happy with current voiding parameters on 0.4 mg of Flomax daily; will continue Renal ultrasound in 1 year. Discussed obtaining PSA for further assessment evaluation Follow-up in 1 year with imaging to be completed prior; or sooner with any issues, concerns, and or questions Orders: Orders US renal BI 364 Days N28.1 - Cyst of kidney, acquired Urine Cytology Today N28.1 - Cyst of kidney, acquired, R31.29 - Other microscopic hematuria AMB Urinalysis Automated 10/29/22 Z13.9 - Encounter for screening, unspecified Prostate Specific Antigen Today N40.0 - Benign prostatic hyperplasia without lower urinary tract symptoms Patient Instructions: The patient had an opportunity to ask questions regarding the treatment plan. All questions were answered. Physical exam, labs, and imaging were discussed and reviewed in detail. As well as risks, benefits, and discussion of treatment thurston dipak. No major barriers to understanding were identified. The patient expressed understanding and agreement with the above treatment plan. The patient was made aware they should contact our office by phone for worsening of their current condition, the appearance of new symptoms, or with any questions or concerns. Compliance is encouraged with any medications and follow up testing that is ordered. It is a privilege to be allowed the opportunity to participate in? your urological care.? Again, if you have any questions or concerns If you have any questions or concerns please do not hesitate to contact me. The office is [phone]. This note is constructed using voice recognition software. While every effort has been made to ensure accuracy fly raiser lockstitch errors may have been included. Yours sincerely, SHERICE Patrick Coding Level of Care Code Est Pt Level 3 (72187) Diagnoses Bilateral renal cysts N28.1 Microhematuria R31.29
== END 2022-10-29 10:28 | disposition home or self-care (01) ==
PROVIDERS: Visit Provider Nurse Practitioner Family
DX: N28.1 Cyst of kidney, acquired (principal); R31.29 Other microscopic hematuria
CPT/HCPCS: 99213

== ENCOUNTER → 2022-10-29 09:45 | Outpatient (BNVA) | payer MEDICARE, SELFPAY | PROVIDERS: Visit Provider Nurse Practitioner Family | DX: N28.1 Cyst of kidney, acquired (principal); R31.29 Other microscopic hematuria | CPT/HCPCS: 99212 ==

== ENCOUNTER 2023-02-15 07:55 | Outpatient (AMB) | payer MEDICARE, SELFPAY ==
--- NOTE | 2023-02-15 07:58 | MHC.PC.OV ---
Vital Signs 02/15/23 08:00 Height 5 ft 9 in Weight 204 lb BMI 30.1 BP 128/72 Blood Pressure Location Lt brachial Position Sitting Pulse 61 Pulse Source Pulse Oximeter Pulse Oximetry (%) 97 Oxygen Delivery Method Room Air Intake Visit Reasons: 4 month follow up Intake Note: Pt is here today for his 4mp. f/u Allergies No Known Allergies [No Known Allergies*] Allergy (Verified 02/15/23 08:29) Medication List - Last Reconciled 02/15/23 by SHERICE Alba aspirin (Adult Aspirin Regimen) 81 mg PO DAILY atorvastatin 10 mg PO DAILY 90 days blood-glucose meter (FreeStyle Lite Meter kit) As directed docusate sodium (Colace) 200 mg (2 x 100 mg) PO BEDTIME losartan 50 mg PO DAILY 90 days sennosides (senna) 8.6 mg PO BEDTIME PRN tamsulosin 0.4 mg PO DAILY 90 days Tobacco use date assessed: 02/15/23 Fall risk assessment: No Falls in past year Last assessed Fall Risk: 02/15/23 Dental Screening Dental Screen Date: 02/15/23 Did you have a dental visit in the last 12 months?: No Was dental information given to patient?: Patient declined HPI 4 month follow up HPI Details Pt is a diabetic, on an ARB and a statin. A1C in office today is 5.4. Microalbumin is up to date. Denies polyuria, polydipsia, and neuropathy. Pt denies any signs and symptoms of hypoglycemia and does know how to correct it. Eye exam is up to date. Due for cologuard, will order. [facility] Medical History Constipation Hyperbilirubinemia Obesity Depression with anxiety Renal cyst, left Diabetes [place] disease Surgical History No pertinent past surgical history Family History Father Kidney failure Heart failure Mother No problems noted. Brother Diabetes mellitus HTN (hypertension) Brother No problems noted. Brother No problems noted. Sister No problems noted. Daughter No problems noted. 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 Amando Melendez, Liza Cano, Mamadou Siu and colleagues, with an educational la from [employer]. Review of Systems Const Reports as per HPI Physical exam (Primary Care) Vital Signs: Last Vital Signs Pulse 61 02/15/23 08:00 BP 128/72 02/15/23 08:00 Pulse Ox 97 02/15/23 08:00 Oxygen Delivery Method Room Air 02/15/23 08:00 BMI result Body Mass Index 30.1 Tobacco/Smoking Status: Tobacco use Status Tobacco use date assessed 02/15/23 02/15/23 08:03 Patient Tobacco Use Status Former Tobacco user 02/15/23 08:00 e-Cigarette/Vaping Use Never Used 02/15/23 08:00 Thrive Assessment: Date of Thrive Assessment Date Thrive assessed 08/11/22 02/15/23 08:00 Const General: cooperative Orientation/consciousness: patient oriented x3 Resp Effort & Inspection: normal respiratory effort Auscultation: clear to auscultation bilaterally Cardio Rate: regular rate Rhythm: regular rhythm Heart sounds: S1 normal heart sound present, S2 normal heart sound present and Murmur heart sound present systolic (faint) Neuro General: patient oriented x3 Extrem Other: bilat feet: + sensation with use of monofilament, feet intact Right lower extremity: no edema Left lower extremity: no edema Psych Appearance: grossly normal Mental Status: mental status grossly normal Speech and movement: Normal speech and movement present Affect: normal affect Attitude: cooperative Thought process: Normal thought process present Thought content: Normal thought content present Insight: Good insight present (Psych) Judgement: Good judgement present (Psych) Results AMB Hemoglobin A1c AMB Hemoglobin A1c 5.4 % Last Edit by Kerry Mosley CMA on 02/15/23 08:22 Assessment and Plan Assessment & Plan (1) Diabetes: Code(s): E11.9 - Type 2 diabetes mellitus without complications Plan: Labs ordered Plan The patient agreed to the use of a certified medical dosimetrist for this encounter. Scribed for SHERICE Sterling by Lucy Mccarty certified medical dosimetrist, on 02/15/2023 at 08:10 EST. Orders: Orders Lipid Panel Today E11.9 - Type 2 diabetes mellitus without complications Complete Blood Count Auto Diff Today E11.9 - Type 2 diabetes mellitus without complications Comprehensive [place]. Panel Fast Today E11.9 - Type 2 diabetes mellitus without complications TSH reflex Free T4 Today E11.9 - Type 2 diabetes mellitus without complications UA CC w/rflx Micro + Cult Today E11.9 - Type 2 diabetes mellitus without complications AMB Hemoglobin A1c Today E11.9 - Type 2 diabetes mellitus without complications Microalbumin, Random (w Creat) Today E11.9 - Type 2 diabetes mellitus without complications Referrals Cologuard Test Z12.11 - Encounter for screening for malignant neoplasm of colon, Z12.12 - Encounter for screening for malignant neoplasm of rectum Coding Level of Care Code Est Pt Level 3 (57874) Diagnoses Diabetes E11.9
[2023-02-15 08:00] VITALS: BP 128/72; PULSE 61; O2SAT 97; BMI 30.1
== END 2023-02-15 08:26 | disposition home or self-care (01) ==
PROVIDERS: PCP Nurse Practitioner Family; Visit Provider Nurse Practitioner Family
DX: E11.9 Type 2 diabetes mellitus without complications (principal)
CPT/HCPCS: 83036; 99213

== ENCOUNTER 2023-05-25 09:09 | Outpatient (AMB) | payer MEDICARE, SELFPAY ==
--- NOTE | 2023-05-25 09:14 | A.OFFPC_ITS ---
Vital Signs 05/25/23 09:15 Height 5 ft 9 in Weight 204 lb 6 oz BMI 30.2 BP 108/60 Blood Pressure Location Rt brachial Position Sitting Pulse 79 Pulse Source Pulse Oximeter Pulse Oximetry (%) 98 Oxygen Delivery Method Room Air Intake Visit Reasons: 3 month fu Intake Note: Pt is here to follow up for his DM Allergies No Known Allergies [No Known Allergies*] Allergy (Verified 05/25/23 09:17) Medication List - Last Reconciled 05/25/23 by SHERICE Alba aspirin (Adult Aspirin Regimen) 81 mg PO DAILY atorvastatin 10 mg PO DAILY 90 days blood-glucose meter (FreeStyle Lite Meter kit) As directed docusate sodium (Colace) 200 mg (2 x 100 mg) PO BEDTIME losartan 50 mg PO DAILY 90 days sennosides (senna) 8.6 mg PO BEDTIME PRN tamsulosin 0.4 mg PO DAILY 90 days Tobacco use date assessed: 05/25/23 Fall risk assessment: No Falls in past year Last assessed Fall Risk: 05/25/23 Dental Screening Dental Screen Date: 05/25/23 Did you have a dental visit in the last 12 months?: No Did you have a dental problem in the last 6 months where you did not have access to dental care?: No Was dental information given to patient?: No HPI 3 month fu HPI Details Pt is a diabetic, on an ARB. A1C in office today is 5.7. Due for microalbumin, will order. Denies polyuria, polydipsia, and neuropathy. Pt denies any signs and symptoms of hypoglycemia and does know how to correct it. Refuses colonoscopy and cologuard. Eye exam is up to date. [facility] Medical History Constipation Hyperbilirubinemia Obesity Depression with anxiety Renal cyst, left Diabetes [place] disease Surgical History No pertinent past surgical history Family History Father Kidney failure Heart failure Mother No problems noted. Brother Diabetes mellitus HTN (hypertension) Brother No problems noted. Brother No problems noted. Sister No problems noted. Daughter No problems noted. Social History Household Members Other:: 3 years Housing: House Alcohol intake: current Alcohol intake frequency: a few times a month Alcohol type: beer Patient Tobacco Use Status: Former Tobacco user e-Cigarette/Vaping Use: Never Used Second Hand Smoke Exposure: No Current occupational status: retired Current occupation: [employer] Cognitive needs: No Hearing needs: No Vision needs: Yes Questionnaire PHQ-9 Over the last 2 weeks, how often have you been bothered by any of the following problems? 1. Little interest or pleasure in doing things: not at all 2. Feeling down, depressed, or hopeless: not at all 3. Trouble falling or staying asleep, or sleeping too much: not at all 4. Feeling tired or having little energy: not at all 5. Poor appetite or overeating: not at all 6. Feeling bad about yourself - or that you are a failure or have let yourself or your family down: not at all 7. Trouble concentrating on things, such as reading the newspaper or watching television: not at all 8. Moving or speaking so slowly that other people could have noticed. Or the opposite - being so fidgety or restless that you have been moving around a lot more than usual: not at all 9. Thoughts that you would be better off or of hurting yourself in some way: not at all Total score: 0 Source: Developed by Drs. Amando Melendez, Liza Cano, Mamadou Siu and colleagues, with an educational la from [employer]. Thrive Questionnaire Date Thrive assessed: 05/25/23 I am a: Patient What is your living situation today?: I have a steady place to live Within the past 12 months, did the food you bought not last and you didn't have the money to get more?: Never true Within the past 12 months, did you worry whether your food would run out before you got money to buy more?: Never true Do you have trouble paying for medicines?: No Do you have trouble getting transportation to medical appointments?: No Do you have trouble paying your heating and electricity bill?: No Do you have trouble taking care of your child, family member or friend?: No Do you have trouble with day-to-day activities such as bathing, preparing meals, shopping, managing finances, etc.?: No Are you currently unemployed and looking for a job?: No Are you interested in more education?: No THRIVE Score: 0 AUDIT C Alcohol Use Questionnaire (AUDIT-C) 1. How often do you have a drink containing alcohol?: 2-3 times a week 2. How many drinks containing alcohol do you have on a typical day when you are drinking?: 3 or 4 3. How often do you have six or more drinks on one occasion?: Never Total Score: 4 YEN-7 AMB Questionnaire YEN-7 Date YEN - 7 assessed: 05/25/23 Feeling nervous, anxious, or on edge: 0 = Not at all Not being able to stop or control worryin = Not at all Worrying too much about different things: 0 = Not at all Trouble relaxin = Not at all Being so restless that it is hard to sit still: 0 = Not at all Becoming easily annoyed or irritable: 0 = Not at all Feeling afraid as if something awful might happen: 0 = Not at all Total YEN-7 score (0-4 normal; 5-9 mild; 10-14 moderate; 15-21 severe): 0 Source: Developed by Drs. Amando Melendez, Liza Cano, Mamadou Siu and colleagues, with an educational la from [employer]. Review of Systems Const Reports as per HPI Physical exam (Primary Care) Vital Signs: Last Vital Signs Pulse 79 05/25/23 09:15 BP 108/60 05/25/23 09:15 Pulse Ox 98 05/25/23 09:15 Oxygen Delivery Method Room Air 05/25/23 09:15 BMI result Body Mass Index 30.2 Tobacco/Smoking Status: Tobacco use Status Tobacco use date assessed 05/25/23 05/25/23 09:20 Patient Tobacco Use Status Former Tobacco user 05/25/23 09:14 e-Cigarette/Vaping Use Never Used 05/25/23 09:14 PHQ-9: PHQ-9 Score PHQ-9: Total score 0 05/25/23 09:48 Thrive Assessment: Date of Thrive Assessment Date Thrive assessed 05/25/23 05/25/23 09:41 Const General: cooperative Orientation/consciousness: patient oriented x3 Resp Effort & Inspection: normal respiratory effort Auscultation: clear to auscultation bilaterally Cardio Rate: regular rate Rhythm: regular rhythm Heart sounds: S1 normal heart sound present and S2 normal heart sound present Neuro General: patient oriented x3 Extrem Other: bilat feet: + sensation with use of monofilament Psych Appearance: grossly normal Mental Status: mental status grossly normal Speech and movement: Normal speech and movement present Affect: normal affect Attitude: cooperative Thought process: Normal thought process present Thought content: Normal thought content present Insight: Good insight present (Psych) Judgement: Good judgement present (Psych) Results AMB Hemoglobin A1c AMB Hemoglobin A1c 5.7 % Last Edit by Zhanna Ibrahim CMA on 05/25/23 09: 34 Results Reviewed Results Reviewed: Laboratory Last Values Hgb A1c (Clinic) 5.7 % (4.0-6.0) 05/25/23 09:26 Assessment and Plan Assessment & Plan (1) Diabetes: Code(s): E11.9 - Type 2 diabetes mellitus without complications Plan The patient agreed to the use of a medical education coordinator for this encounter. Scribed for SHERICE Sterling by Lucy Mccarty medical education coordinator, on 05/25/2023 at 09:40 EST. Orders: Orders AMB Hemoglobin A1c Today E11.9 - Type 2 diabetes mellitus without complications Medications: Refilled sennosides (senna) 8.6 mg PO BEDTIME PRN 30 caps 5RF constipation docusate sodium (Colace) 200 mg (2 x 100 mg) PO BEDTIME 60 caps 5RF Coding Level of Care Code Est Pt Level 3 (30586) Diagnoses Diabetes E11.9
[2023-05-25 09:15] VITALS: BP 108/60; PULSE 79; O2SAT 98; BMI 30.2
== END 2023-05-25 10:04 | disposition home or self-care (01) ==
PROVIDERS: PCP Nurse Practitioner Family; Visit Provider Nurse Practitioner Family
DX: E11.9 Type 2 diabetes mellitus without complications (principal)
CPT/HCPCS: 83036; 99213

== ENCOUNTER 2023-06-06 09:00 | Outpatient (REF) | payer MEDICARE, SELFPAY ==
[2023-06-06 10:57] LABS: MANUAL DIFF FLAG NO
[2023-06-06 11:06] LABS: Appearance Urine Turbid; Color Urine Dark Yellow; Glucose Urine UA Negative (Negative); Leukocyte Esterase Urine Negative (Negative); Nitrite Urine Negative (Negative); PH 5.5 (5.0-9.0); Specific Gravity - Urine 1.025 (1.005-1.025); UMIC TRIGGER UACC YES; Urine Blood Moderate (2+) (Negative); Urine Ketones Trace mg/dL (Negative); Urine Protein Negative (Neg-Trace)
[2023-06-06 11:07] LABS: Basophils Absolute Auto 0.1 X10*3/uL (0.0-0.2); Basophils Percent Auto 0.9 % (0-2); Eosinophils Absolute Auto 0.3 X10*3/uL (0.0-0.4); Hematocrit 42.2 % (42.0-52.0); Hemoglobin 13.8 g/dl (14.0-18.0); Imm Gran Abs Auto 0.01 X10*3/uL (0.00-0.03); Imm Gran Pct Auto 0.1 % (0.0-0.4); Lymphocytes Absolute Auto 1.5 X10*3/uL (1.2-4.9); Lymphocytes Percent Auto 19.9 % (20-40); Mean Corpuscular HGB Conc 32.7 g/dl (31.0-36.0); Mean Corpuscular Hemoglobin 30.4 pg (27.0-33.0); Mean Platelet Volume 10.4 fL (9.4-12.4); Monocytes Absolute Auto 0.6 X10*3/uL (0.1-1.2); Monocytes Percent Auto 7.7 % (2-11); Neutrophils Percent Auto 67.4 % (45-73); Platelet Count 272 X10*3/uL (160-400); Red Blood Count 4.54 X10*6/uL (4.60-5.80); Red Cell Distribution Width 13.2 % (11.0-16.0); White Blood Count 7.4 X10*3/uL (4.8-10.8)
[2023-06-06 11:12] LABS: Bacteria Urine None Seen (None Seen); Hyaline Casts Urine 0-2 /LPF (0-2); Squamous Epithelial Cell Urine 0-2 /HPF (0-2); WBC Urine 0-5 /HPF (0-5)
[2023-06-06 11:37] LABS: Creatinine Urine 259.41 mg/dL; Microalbum/Creatinine Ratio Ur 3.8 ug/mg cr (<30)
[2023-06-06 11:41] LABS: Alanine Aminotransferase 14 U/L (0-40); Alkaline Phosphatase 51 U/L (39-117); Anion Gap 12 (12-20); Aspartate Amino Transferase 16 U/L (5-37); Bilirubin Total 1.8 mg/dL (0.0-1.0); Blood Urea Nitrogen 10 mg/dL (9-16); Calcium 9.2 mg/dL (8.4-10.2); Carbon Dioxide 30 mmol/L (22-29); Chloride 103 mmol/L (96-108); Cholesterol 114 mg/dL (<200); Estimated Glomerular Filt Rate > 60; Glucose Fasting 102 mg/dL (60-99); HDL Cholesterol 59 mg/dL (>40); LDL Cholesterol Calculated 38 mg/dL (<100); Potassium 3.5 mmol/L (3.3-5.1); Sodium 141 mmol/L (135-145); Triglycerides 86 mg/dL (<150)
[2023-06-06 11:46] LABS: TSH reflex Free T4 1.35 uIU/mL (0.32-4.0)
== END 2023-06-06 09:01 | disposition home or self-care (01) ==
LOC: HO.HMGCLDS 09:00
PROVIDERS: PCP Nurse Practitioner Family; Visit Provider Nurse Practitioner Family
DX: E11.9 Type 2 diabetes mellitus without complications (principal)
CPT/HCPCS: 36415; 80053; 80061; 81001; 81003; 82043; 82570; 84443; 85025

== ENCOUNTER 2023-10-19 12:30 | Outpatient (AMB) | payer MEDICARE, SELFPAY ==
--- NOTE | 2023-10-19 12:40 | MHC.PC.OV ---
Vital Signs 10/19/23 12:43 Height 5 ft 9 in Weight 200 lb BMI 29.5 BP 120/82 Blood Pressure Location Lt brachial Position Sitting Pulse 64 Pulse Source Pulse Oximeter Pulse Oximetry (%) 95 Oxygen Delivery Method Room Air Intake Visit Reasons: 4 month follow up ~ R/S Intake Note: patient here for DM f/u Allergies No Known Allergies [No Known Allergies*] Allergy (Verified 10/19/23 12:57) Medication List - Last Reconciled 10/19/23 by SHERICE Alba aspirin (Adult Aspirin Regimen) 81 mg PO DAILY atorvastatin 10 mg PO DAILY 90 days blood-glucose meter (FreeStyle Lite Meter kit) As directed docusate sodium (Colace) 200 mg (2 x 100 mg) PO BEDTIME losartan 50 mg PO DAILY 90 days sennosides (senna) 8.6 mg PO BEDTIME PRN tamsulosin 0.4 mg PO DAILY 90 days Tobacco use date assessed: 05/25/23 Dental Screening Dental Screen Date: 05/25/23 HPI 4 month follow up ~ R/S HPI Details Pt is a diabetic, on an ARB and a statin. A1C in office today is 5.8. Microalbumin is up to date. Denies polyuria, polydipsia, and neuropathy. Pt denies any signs and symptoms of hypoglycemia and does know how to correct it. Pt reports that his blood sugar has been well-controlled. [facility] Medical History Constipation Hyperbilirubinemia Obesity Depression with anxiety Renal cyst, left Diabetes [place] disease Surgical History No pertinent past surgical history Family History Father Kidney failure Heart failure Mother No problems noted. Brother Diabetes mellitus HTN (hypertension) Brother No problems noted. Brother No problems noted. Sister No problems noted. Daughter No problems noted. 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 Amando Melendez, Liza Cano, Mamadou Siu and colleagues, with an educational la from [employer]. Review of Systems Const Reports as per HPI Physical exam (Primary Care) Vital Signs: Last Vital Signs Pulse 64 10/19/23 12:43 BP 120/82 10/19/23 12:43 Pulse Ox 95 10/19/23 12:43 Oxygen Delivery Method Room Air 10/19/23 12:43 BMI result Body Mass Index 29.5 Tobacco/Smoking Status: Tobacco use Status Tobacco use date assessed 05/25/23 10/19/23 12:42 Patient Tobacco Use Status Former Tobacco user 10/19/23 12:42 e-Cigarette/Vaping Use Never Used 10/19/23 12:42 Thrive Assessment: Date of Thrive Assessment Date Thrive assessed 05/25/23 10/19/23 12:42 Const General: cooperative Orientation/consciousness: patient oriented x3 Resp Effort & Inspection: normal respiratory effort Auscultation: clear to auscultation bilaterally Cardio Rate: regular rate Rhythm: regular rhythm Heart sounds: S1 normal heart sound present and S2 normal heart sound present Neuro General: patient oriented x3 Extrem Other: bilat feet: + sensation with use of monofilament, feet intact Psych Appearance: grossly normal Mental Status: mental status grossly normal Speech and movement: Normal speech and movement present Affect: normal affect Attitude: cooperative Thought process: Normal thought process present Thought content: Normal thought content present Insight: Good insight present (Psych) Judgement: Good judgement present (Psych) Assessment and Plan Assessment & Plan (1) Diabetes: Code(s): E11.9 - Type 2 diabetes mellitus without complications Plan: Labs ordered Plan The patient agreed to the use of a medical office representative for this encounter. Scribed for SHERICE Sterling by Lucy Mccarty medical office representative, on 10/19/2023 at 12:55 EST. Orders: Orders TSH reflex Free T4 Today E11.9 - Type 2 diabetes mellitus without complications UA CC w/rflx Micro + Cult Today E11.9 - Type 2 diabetes mellitus without complications Complete Blood Count Auto Diff Today E11.9 - Type 2 diabetes mellitus without complications Comprehensive [place]. Panel Fast Today E11.9 - Type 2 diabetes mellitus without complications Lipid Panel Today E11.9 - Type 2 diabetes mellitus without complications Medications: Refilled docusate sodium (Colace) 200 mg (2 x 100 mg) PO BEDTIME 60 caps 5RF Coding Level of Care Code Est Pt Level 3 (58721) Diagnoses Diabetes E11.9
[2023-10-19 12:43] VITALS: BP 120/82; PULSE 64; O2SAT 95; BMI 29.5
== END 2023-10-19 13:08 | disposition home or self-care (01) ==
PROVIDERS: PCP Nurse Practitioner Family; Visit Provider Nurse Practitioner Family
DX: E11.9 Type 2 diabetes mellitus without complications (principal)
CPT/HCPCS: 83036; 99213

== ENCOUNTER 2024-01-02 08:19 | Outpatient (REF) | payer MEDICARE, SELFPAY ==
--- NOTE | ~2024-01-02 | US_ITS ---
EXAMINATION: US RETROPERITONEAL LIMITED (RENAL ONLY) CLINICAL INFORMATION: Cyst of kidney, acquired. COMPARISON: Renal ultrasound 10/13/2022 and 10/22/2021. CT abdomen and pelvis 07/17/2014. TECHNIQUE: Real-time imaging of the kidneys. FINDINGS: RIGHT KIDNEY: 11.4 x 5.1 x 5.8 cm (SAG x AP x TRV). The kidney is normal in size, contour, and echogenicity. Renal cortical thickness is normal. No renal calculi or hydronephrosis. At the interpolar aspect, a 1.6 cm benign, simple cyst is seen, for which no imaging follow-up is recommended. LEFT KIDNEY: 11.8 x 4.8 x 5.6 cm (SAG x AP x TRV). The kidney is normal in size, contour, and echogenicity. Renal cortical thickness is normal. No renal calculi or hydronephrosis. At the interpolar aspect, a 1.0 cm benign, simple cyst is seen, for which no imaging follow-up is recommended. US/US renal BI IMPRESSION: Unremarkable examination. Electronically signed by: Torey Sandoval MD 01/05/2024 02:31 PM EDT
== END 2024-01-02 08:20 | disposition home or self-care (01) ==
LOC: HO.HMGCX 08:19
PROVIDERS: PCP Nurse Practitioner Family; Visit Provider Nurse Practitioner Family
DX: N28.1 Cyst of kidney, acquired (principal)
CPT/HCPCS: 76775

== ENCOUNTER 2024-01-31 07:35 | Outpatient (AMB) | payer MEDICARE, SELFPAY ==
--- NOTE | 2024-01-31 07:42 | A.OFFVIS_ITS ---
Intake Visit Reasons: Follow up/U/S(set) Intake Note: Patient presents today for follow up on: renal cyst, microhematuria, and ultrasound results Imaging Completed: 01/02/24 Urology Medications: Tamsulosin Blood Thinner: Aspirin Epoxy Coatings Installer Required: No Accompanied by: Self / Same As Patient Allergies No Known Allergies [No Known Allergies*] Allergy (Verified 01/31/24 10:29) Medication List - Last Reconciled 01/31/24 by ELVIE Patrick aspirin (Adult Aspirin Regimen) 81 mg PO DAILY atorvastatin 10 mg PO DAILY 90 days blood-glucose meter (FreeStyle Lite Meter kit) As directed docusate sodium (Colace) 200 mg (2 x 100 mg) PO BEDTIME losartan 50 mg PO DAILY 90 days sennosides (senna) 8.6 mg PO BEDTIME PRN tamsulosin 0.4 mg PO DAILY 90 days HPI Comments Details: Hunter is a very pleasant 78-year-old male patient of Dr. Helton. He has a past medical history of constipation, depression, anxiety, diabetes, Gilbert's disease, hyperbilirubinemia, and obesity. He presents to the office today for follow-up of his bilateral renal cyst and microscopic hematuria. In discussion with the patient today reports to be doing and feeling well. He denies having had any bothersome urinary issues or concerns since his last office visit here approximately 1 year ago. He reports to be happy with his curr ent voiding parameters on 0.4 mg of Flomax daily. Recent renal imaging results reviewed with the patient today. Bilateral kidneys with benign simple appearing cyst that require no imaging follow-up per radiology report. No hydronephrosis and or renal calculi noted bilaterally. When asked patient denies urinary urgency, urinary frequency, incontinence, nocturia, hematuria, dysuria, foul smelling urine, changes to urinary stream, flank pain, fever, and or chills. In office urinalysis results reviewed with the patient today. Microscopic hematuria noted will send for urine cytology. Patient denies any known chemical exposure. He does report a smoking history however reports have quit approximately 15 years ago. We discussed reasons for blood in the urine may include but are not limited to kidney stones, cancer in the urinary tract, BPH, kidney stone disease or inflammatory conditions of the urinary tract. I have discussed workup to include cystoscopy evaluation however he declines at this time. In review of patient's chart it appears PSAs are as follows... 07/05 0.9, 11/04 0.7, 11/05 1.1, 10/07 0.8, 10/08 1.5 PFSH Medical History Constipation Hyperbilirubinemia Obesity Depression with anxiety Renal cyst, left Diabetes [place] disease Surgical History No pertinent past surgical history Family History Father Kidney failure Heart failure Mother No problems noted. Brother Diabetes mellitus HTN (hypertension) Brother No problems noted. Brother No problems noted. Sister No problems noted. Daughter No problems noted. Social History Household Members Other:: 3 years Housing: House Alcohol intake: current Alcohol intake frequency: a few times a month Alcohol type: beer Patient Tobacco Use Status: Former Tobacco user e-Cigarette/Vaping Use: Never Used Second Hand Smoke Exposure: No Current occupational status: retired Current occupation: [employer] Cognitive needs: No Hearing needs: No Vision needs: Yes Review of Systems Const Reports as per HPI Eyes Reports no additional complaints ENT Reports no additional complaints Card Reports no additional complaints Resp Reports no additional complaints GI Reports as per HPI Reports as per HPI Neuro Reports no additional complaints Psych Reports as per HPI Endo Reports as per HPI Physical Exam Const General: cooperative, healthy appearing, comfortable, no acute distress, well developed, alert and awake Orientation/consciousness: patient oriented x3 Limitations: no limitations HEENT Head: Yes normal to inspection, Yes normocephalic and Yes atraumatic Ears: hearing grossly normal bilaterally Eyes General: appearance normal, both eyes and all related structures Neck Neck: Yes normal visual inspection and Yes trachea midline Chest Chest palpation & inspection: normal inspection of the chest Resp Effort & Inspection: normal respiratory effort and able to speak in complete sentences Cardio Rate: regular rate GI Inspection: Yes normal to inspection General: Yes no CVA tenderness Back/Spine/Pelvis Back: no CVA tenderness Skin General skin exam: no rashes or lesions noted Neuro General: patient oriented x3 Extrem General: Yes normal to inspection Psych Appearance: grossly normal and well kempt Mental Status: mental status grossly normal Speech and movement: Normal speech and movement present and Clear speech present Affect: normal affect Attitude: cooperative Thought process: Normal thought process present Thought content: Normal thought content present Insight: Fair insight present (Psych) Judgement: Fair judgement present (Psych) Results AMB Urinalysis, Automated UA Leukoctes 0 Carolyn/uL Last Edit by [employer] on 01/31/24 07:57 UA Nitrite Last Edit by [employer] on 01/31/24 07:57 UA Urobilinogen 0.2 mg/dL Last Edit by [employer] on 01/31/24 07:57 UA Protein 0 mg/dL Last Edit by [employer] on 01/31/24 07:57 UA pH 6.0 Last Edit by [employer] on 01/31/24 07:57 UA Blood 80 Pineda/uL Last Edit by [employer] on 01/31/24 07:57 UA Specific [place] 1.025 Last Edit by [employer] on 01/31/24 07:57 UA Ketone Negative Last Edit by [employer] on 01/31/24 07:57 UA Bilirubin 0 mg/dL Last Edit by [employer] on 01/31/24 07:57 UA Glucose 0 mg/dL Last Edit by [employer] on 01/31/24 07:57 Results Reviewed Results Reviewed: Laboratory Last Values Urine pH (Auto) 6.0 01/31/24 07:55 Specific [place] (Auto) 1.025 01/31/24 07:55 Urine Protein (Auto) 0 mg/dL 01/31/24 07:55 Glucose (UA)(Auto) 0 mg/dL 01/31/24 07:55 Urine Ketones (Auto) Negative 01/31/24 07:55 Urine Blood (Auto) 80 Pineda/uL 01/31/24 07:55 Urine Bilirubin (Auto) 0 mg/dL 01/31/24 07:55 Urine Urobilinogen (Auto) 0.2 mg/dL 01/31/24 07:55 Leukocyte Esterase (Auto) 0 Carolyn/uL 01/31/24 07:55 Date of Service: 01/02/24 EXAMINATION: US RETROPERITONEAL LIMITED (RENAL ONLY) FINDINGS: RIGHT KIDNEY: 11.4 x 5.1 x 5.8 cm (SAG x AP x TRV). The kidney is normal in size, contour, and echogenicity. Renal cortical thickness is normal. No renal calculi or hydronephrosis. At the interpolar aspect, a 1.6 cm benign, simple cyst is seen, for which no imaging follow-up is recommended. LEFT KIDNEY: 11.8 x 4.8 x 5.6 cm (SAG x AP x TRV). The kidney is normal in size, contour, and echogenicity. Renal cortical thickness is normal. No renal calculi or hydronephrosis. At the interpolar aspect, a 1.0 cm benign, simple cyst is seen, for which no imaging follow-up is recommended. IMPRESSION: Unremarkable examination. Assessment & Plan Assessment & Plan (1) Microhematuria: Code(s): R31.29 - Other microscopic hematuria Category: Medical (2) Bilateral renal cysts: Code(s): N28.1 - Cyst of kidney, acquired Category: Medical Plan In office urinalysis results reviewed with the patient today; as noted above; will send for urine cytology Discussed recent renal imaging results with the patient today; as noted above Discussed further microscopic hematuria workup with in office cystoscopy; however patient declines Discussed at length potential causes for microscopic hematuria. Patient reports to be happy with current voiding parameters on 0.4 mg of Flomax daily; will continue Discussed obtaining PSA for further assessment evaluation. Will obtain retroperitoneal ultrasound in 1 year Follow-up in 1 year with imaging and PVR; or sooner with any issues, concerns, and or questions Orders: Orders Urine Cytology Today R31.29 - Other microscopic hematuria US retroperitoneal comp 1 Year N28.1 - Cyst of kidney, acquired, R31.29 - Other microscopic hematuria AMB Urinalysis Automated Today Z13.9 - Encounter for screening, unspecified Prostate Specific Antigen Today Z12.5 - Encounter for screening for malignant neoplasm of prostate Medications: Refilled tamsulosin 0.4 mg PO DAILY 90 days 90 caps 3RF Patient Instructions: The patient had an opportunity to ask questions regarding the treatment plan. All questions were answered. Physical exam, labs, and imaging were discussed and reviewed in detail. As well as risks, benefits, and discussion of treatment choices. No major barriers to understanding were identified. The patient expressed understanding and agreement with the above treatment plan. The patient was made aware they should contact our office by phone for worsening of their current condition, the appearance of new symptoms, or with any questions or concerns. Compliance is encouraged with any medications and follow up testing that is ordered. It is a privilege to be allowed the opportunity to participate in? your urological care.? Again, if you have any questions or concerns If you have any questions or concerns please do not hesitate to contact me. The office is [phone]. This note is constructed using voice recognition software. While every effort has been made to ensure accuracy b2b sales consultant errors may have been included. Yours sincerely, SHERICE Patrick Coding Level of Care Code Est Pt Level 3 (33453) Complex EM visit Add On G2211 Diagnoses Microhematuria R31.29 Bilateral renal cysts N28.1
== END 2024-01-31 08:16 | disposition home or self-care (01) ==
PROVIDERS: PCP Nurse Practitioner Family; Visit Provider Nurse Practitioner Family
DX: R31.29 Other microscopic hematuria (principal); N28.1 Cyst of kidney, acquired
CPT/HCPCS: 99213; G2211

== ENCOUNTER 2024-01-31 07:35 | Outpatient (REF) | payer MEDICARE, SELFPAY ==
[2024-01-31 16:36] LABS: Urine Cytology See Pathology rpt
== END 2024-01-31 07:36 | disposition home or self-care (01) ==
LOC: HO.LNP 07:35
PROVIDERS: PCP Nurse Practitioner Family; Visit Provider Nurse Practitioner Family
DX: R31.29 Other microscopic hematuria (principal); N28.1 Cyst of kidney, acquired
CPT/HCPCS: 81003; 88112; 99212

== ENCOUNTER 2024-02-13 15:23 | Outpatient (AMB) | payer MEDICARE, SELFPAY ==
--- NOTE | 2024-02-13 15:29 | MHC.OFFWIV ---
Intake Vital Signs 02/13/24 15:39 Height 5 ft 9 in Weight 201 lb BMI 29.7 BP 130/80 Blood Pressure Location Rt brachial Position Sitting Pulse 58 Pulse Source Pulse Oximeter Pulse Oximetry (%) 97 Oxygen Delivery Method Room Air Intake Visit Reasons: EP Back pain Intake Note: Patient here for back pain that has been present on and off for about 1 week. Patient Tobacco Use Status: Former Tobacco user Allergies No Known Allergies [No Known Allergies*] Allergy (Verified 02/13/24 15:40) Do you need a note to return to daycare/school/sports/work: No HPI EP Back pain HPI Details This note is constructed using voice recognition software. While every effort has been made to ensure accuracy, donor specialist errors may have been included. The patient is a 78 year old male who presents to the clinic today with 5 day history of right lower back pain. Denies any specific injury, but does report that he had been helping his girlfriend move some boxes and feels that the symptoms happened after that. He denies numbness and tingling in the legs, loss of control of bladder or bowel, or saddle anesthesia. He does report some of the pain travels down his right leg slightly stopping behind his right knee. He has not tried anything to resolve the pain, and reports the pain is worse when he is going from sitting to standing or standing to sitting. COUNTS INCLUDE 234 BEDS AT THE [facility] Medical History Constipation Hyperbilirubinemia Obesity Depression with anxiety Renal cyst, left Diabetes [place] disease Surgical History No pertinent past surgical history Family History Father Kidney failure Heart failure Mother No problems noted. Brother Diabetes mellitus HTN (hypertension) Brother No problems noted. Brother No problems noted. Sister No problems noted. Daughter No problems noted. 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 Cognitive needs: No Hearing needs: No Vision needs: Yes Review of Systems Const All systems reviewed & are unremarkable except as noted in HPI and below Physical Exam Vital Signs: Last Vital Signs Pulse 58 02/13/24 15:39 BP 130/80 02/13/24 15:39 Pulse Ox 97 02/13/24 15:39 Oxygen Delivery Method Room Air 02/13/24 15:39 BMI result Body Mass Index 29.7 Const General: cooperative, healthy appearing, comfortable, no acute distress and well developed Orientation/consciousness: patient oriented x3 Limitations: no limitations Resp Effort & Inspection: normal respiratory effort and able to speak in complete sentences Back/Spine/Pelvis Other: Right sciatic notch tenderness. Positive SLR, negative well SLR Skin General skin exam: no rashes or lesions noted Neuro General: patient oriented x3 Extrem General: Yes normal to inspection Assessment & Plan Assessment & Plan (1) Sciatica: Code(s): M54.30 - Sciatica, unspecified side Qualifiers: Laterality: right Qualified Code(s): M54.31 - Sciatica, right side Plan: Discussed possible treatment options, patient would like to try a ctqo-tjw-[id number] options 1st. We will try ibuprofen with food in his stomach. And heat versus ice. Advised follow up with ongoing symptoms or worsening symptoms. Plan See above for full details and plan. Coding Level of Care Code Est Pt Level 3 (65040) Diagnoses Sciatica of right side M54.31 Laterality: right
[2024-02-13 15:39] VITALS: BP 130/80; PULSE 58; O2SAT 97; BMI 29.7
== END 2024-02-13 16:24 | disposition home or self-care (01) ==
PROVIDERS: PCP Nurse Practitioner Family; Visit Provider Registered Nurse
DX: M54.31 Sciatica, right side (principal)

== ENCOUNTER → 2024-02-13 15:23 | Outpatient (BNVA) | payer MEDICARE, SELFPAY | PROVIDERS: PCP Nurse Practitioner Family; Visit Provider Registered Nurse | DX: M54.31 Sciatica, right side (principal) | CPT/HCPCS: 99212 ==

== ENCOUNTER 2024-04-12 09:18 | Outpatient (REF) | payer MEDICARE, SELFPAY ==
[2024-04-12 13:11] LABS: MANUAL DIFF FLAG NO
[2024-04-12 13:21] LABS: Basophils Absolute Auto 0.1 X10*3/uL (0.0-0.2); Basophils Percent Auto 0.7 % (0-2); Eosinophils Absolute Auto 0.3 X10*3/uL (0.0-0.4); Eosinophils Percent Auto 4.7 % (0-4); Hematocrit 40.5 % (42.0-52.0); Hemoglobin 13.2 g/dl (14.0-18.0); Imm Gran Abs Auto 0.02 X10*3/uL (0.00-0.03); Imm Gran Pct Auto 0.3 % (0.0-0.4); Lymphocytes Absolute Auto 1.4 X10*3/uL (1.2-4.9); Lymphocytes Percent Auto 20.6 % (20-40); Mean Corpuscular HGB Conc 32.6 g/dl (31.0-36.0); Mean Corpuscular Hemoglobin 30.8 pg (27.0-33.0); Mean Corpuscular Volume 94.4 fL (80.0-98.0); Mean Platelet Volume 10.5 fL (9.4-12.4); Monocytes Absolute Auto 0.6 X10*3/uL (0.1-1.2); Monocytes Percent Auto 8.1 % (2-11); Neutrophils Absolute Auto 4.5 x10*3/uL (2.0-8.3); Neutrophils Percent Auto 65.6 % (45-73); Platelet Count 271 X10*3/uL (160-400); Red Blood Count 4.29 X10*6/uL (4.60-5.80); Red Cell Distribution Width 13.6 % (11.0-16.0); White Blood Count 6.8 X10*3/uL (4.8-10.8)
[2024-04-12 13:25] LABS: Appearance Urine Turbid; Color Urine Yellow; Glucose Urine UA Negative (Negative); Leukocyte Esterase Urine Negative (Negative); Nitrite Urine Negative (Negative); UMIC TRIGGER UACC YES; Urine Blood Small (1+) (Negative); Urine Ketones Negative (Negative); Urine Protein Negative (Neg-Trace)
[2024-04-12 13:28] LABS: Bacteria Urine None Seen (None Seen); Hyaline Casts Urine 0-2 /LPF (0-2); Squamous Epithelial Cell Urine 0-2 /HPF (0-2); WBC Urine 0-5 /HPF (0-5)
[2024-04-12 13:44] LABS: Alanine Aminotransferase 13 U/L (0-40); Albumin Level 3.9 g/dL (3.5-5.0); Alkaline Phosphatase 46 U/L (39-117); Anion Gap 8 (12-20); Aspartate Amino Transferase 20 U/L (5-37); Bilirubin Total 1.2 mg/dL (0.0-1.0); Blood Urea Nitrogen 10 mg/dL (9-16); Calcium 8.8 mg/dL (8.4-10.2); Carbon Dioxide 31 mmol/L (22-29); Chloride 108 mmol/L (96-108); Cholesterol 125 mg/dL (<200); Estimated Glomerular Filt Rate > 60; Glucose Fasting 108 mg/dL (60-99); HDL Cholesterol 62 mg/dL (>40); LDL Cholesterol Calculated 53 mg/dL (<100); Potassium 3.9 mmol/L (3.3-5.1); Sodium 143 mmol/L (135-145); Total Protein 6.8 g/dL (6.5-8.0); Triglycerides 50 mg/dL (<150)
[2024-04-12 14:08] LABS: TSH reflex Free T4 1.37 uIU/mL (0.32-4.0)
== END 2024-04-12 09:19 | disposition home or self-care (01) ==
LOC: HO.HMGCLDS 09:18
PROVIDERS: PCP Nurse Practitioner Family; Visit Provider Nurse Practitioner Family
DX: E11.9 Type 2 diabetes mellitus without complications (principal)
CPT/HCPCS: 36415; 80053; 80061; 81001; 84443; 85025

== ENCOUNTER 2024-04-30 08:54 | Outpatient (AMB) | payer MEDICARE, SELFPAY ==
--- NOTE | 2024-04-30 09:01 | MHC.PC.OV ---
Vital Signs 04/30/24 09:02 Height 5 ft 9 in Weight 204 lb BMI 30.1 BP 118/68 Blood Pressure Location Lt brachial Position Sitting Pulse 63 Pulse Source Pulse Oximeter Pulse Oximetry (%) 98 Oxygen Delivery Method Room Air Intake Visit Reasons: 3m follow up Intake Note: pt is here for 3 mon f/up Director Ambulatory Required: No Accompanied by: Self / Same As Patient Allergies No Known Allergies [No Known Allergies*] Allergy (Verified 04/30/24 09:02) Medication List - Last Reconciled 04/30/24 by AN Alba- aspirin (Adult Aspirin Regimen) 81 mg PO DAILY atorvastatin 10 mg PO DAILY 90 days blood-glucose meter (FreeStyle Lite Meter kit) As directed docusate sodium (Colace) 200 mg (2 x 100 mg) PO BEDTIME losartan 50 mg PO DAILY 90 days sennosides (senna) 8.6 mg PO BEDTIME PRN tamsulosin 0.4 mg PO DAILY 90 days Tobacco use date assessed: 04/30/24 Fall risk assessment: No Falls in past year Last assessed Fall Risk: 04/30/24 Dental Screening Dental Screen Date: 04/30/24 Did you have a dental visit in the last 12 months?: Yes Did you have a dental problem in the last 6 months where you did not have access to dental care?: No Was dental information given to patient?: Patient has dentist HPI 3m follow up HPI Details Chief Complaint The patient is here for a follow-up on diabetes management. History of Present Illness The patient is a 78-year-old male presenting with a request for follow-up care for Type 2 Diabetes Mellitus management. His Hemoglobin A1c level is currently at 5.5%, indicating well-controlled diabetes. The patient experiences no chest pain, polyuria, polydipsia, dyspnea, peripheral neuropathy, headaches, or visual disturbances associated with his diabetes. He adheres to a medication regimen that includes an angiotensin II receptor nadia (ARB) and a statin. The patient's physical examinations, including regular eye exams, are up to date, reflecting no diabetic complications at this time. Social History Health Maintenance - Hemoglobin A1c level is at 5.5%, reflecting effective glucose management. - Regular eye examination is up to date to monitor for diabetic retinopathy. Review of Systems - Cardiovascular: Denies chest pain. - Genitourinary: Denies polyuria and polydipsia. - Respiratory: Denies shortness of breath. - Neurological: Denies neuropathy, headache, or visual disturbances. Physical Exam General: Cooperative, healthy appearing, comfortable, no acute distress and well developed Orientation: Patient oriented x3 Limitations: No limitations Head: Normal to inspection Ears: Hearing grossly normal bilaterally Nose: Normal external nose present Face and sinus: Normal facial exam Eyes: Appearance normal, both eyes and all related structures Neck: Normal visual inspection and Yes full ROM Respiratory: Normal respiratory effort and able to speak in complete sentences. Clear to auscultation bilaterally Cardiovascular: Regular rate and rhythm. Normal S1 and S2 GI: Normal to inspection. Soft to palpation and nontender Skin: No rashes or lesions noted Neuro: Patient oriented x3 Extremities: Feet intact bilaterally, positive sensation with use of monofilament to feet Results - Labs: Hemoglobin A1c is at 5.5%. Plan - Continue current diabetes management regimen including ARB and statin. - Maintain regular monitoring of Hemoglobin A1c levels to ensure continued effective glucose control. - Schedule routine follow-ups to monitor for potential onset of any diabetic complications. Patient was informed and verbally consented to the use of an ambient scribe for clinic note documentation during this visit. Discussion Notes I discussed the diabetes management plan with the patient, highlighting the impressive control of his diabetes as evidenced by the A1c level of 5.5%. I reinforced the importance of maintaining this level and advised the patient to continue with his current medication regimen, including the ARB and statin. We reviewed the absence of symptoms related to diabetes complications and the significance of ongoing monitoring. The need for regular follow-up appointments to assess his condition and adjust treatment if necessary was emphasized. Patient Instructions - Continue taking prescribed medications including the ARB and statin as directed. - Maintain regular check-ups and blood glucose monitoring as discussed. - Report any new symptoms such as chest pain, changes in urination, or vision problems immediately. [facility] Medical History Constipation Hyperbilirubinemia Obesity Depression with anxiety Renal cyst, left Diabetes [place] disease Surgical History No pertinent past surgical history Family History Father Kidney failure Heart failure Mother No problems noted. Brother Diabetes mellitus HTN (hypertension) Brother No problems noted. Brother No problems noted. Sister No problems noted. Daughter No problems noted. 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 occupational status: retired Current occupation: [employer] Cognitive needs: No Hearing needs: No Vision needs: Yes Questionnaire PHQ-9 Over the last 2 weeks, how often have you been bothered by any of the following problems? 1. Little interest or pleasure in doing things: more than half the days 2. Feeling down, depressed, or hopeless: not at all 3. Trouble falling or staying asleep, or sleeping too much: not at all 4. Feeling tired or having little energy: not at all 5. Poor appetite or overeating: not at all 6. Feeling bad about yourself - or that you are a failure or have let yourself or your family down: not at all 7. Trouble concentrating on things, such as reading the newspaper or watching television: not at all 8. Moving or speaking so slowly that other people could have noticed. Or the opposite - being so fidgety or restless that you have been moving around a lot more than usual: not at all 9. Thoughts that you would be better off or of hurting yourself in some way: not at all Total score: 2 Depression Screening Interpretation: Negative Depression Screening Done: Yes 76880 - PHQ-9 Billing: Yes Source: Developed by Drs. Amando Melendez, Liza Cano, Mamadou Siu and colleagues, with an educational la from [employer]. Thrive Questionnaire Date Thrive assessed: 04/30/24 I am a: Patient What is your living situation today?: I have a steady place to live Within the past 12 months, did the food you bought not last and you didn't have the money to get more?: Never true Within the past 12 months, did you worry whether your food would run out before you got money to buy more?: Never true Do you have trouble paying for medicines?: No Do you have trouble getting transportation to medical appointments?: No Do you have trouble paying your heating and electricity bill?: No Do you have trouble taking care of your child, family member or friend?: No Do you have trouble with day-to-day activities such as bathing, preparing meals, shopping, managing finances, etc.?: No Are you currently unemployed and looking for a job?: No Are you interested in more education?: No Please select the resources that you would like help with: None Currently or been in a relationship where the following occur: No concerns reported THRIVE Score: 0 AUDIT C Alcohol Use Questionnaire (AUDIT-C) 1. How often do you have a drink containing alcohol?: 2-3 times a week 2. How many drinks containing alcohol do you have on a typical day when you are drinking?: 3 or 4 3. How often do you have six or more drinks on one occasion?: Never Total Score: 4 Score Reviewed/Action Taken: Yes YEN-7 AMB Questionnaire YEN-7 Date YEN - 7 assessed: 04/30/24 Feeling nervous, anxious, or on edge: 0 = Not at all Not being able to stop or control worryin = Not at all Worrying too much about different things: 0 = Not at all Trouble relaxin = Not at all Being so restless that it is hard to sit still: 0 = Not at all Becoming easily annoyed or irritable: 0 = Not at all Feeling afraid as if something awful might happen: 0 = Not at all Total YEN-7 score (0-4 normal; 5-9 mild; 10-14 moderate; 15-21 severe): 0 Source: Developed by Drs. Amando Melendez, Liza Cano, Mamadou Siu and colleagues, with an educational la from [employer]. YEN-7 Assessment Billing YEN-7 Assessment Tool: YEN-7 Assessment 08749 Physical exam (Primary Care) Vital Signs: Last Vital Signs Pulse 63 04/30/24 09:02 BP 118/68 04/30/24 09:02 Pulse Ox 98 04/30/24 09:02 Oxygen Delivery Method Room Air 04/30/24 09:02 BMI result Body Mass Index 30.1 Tobacco/Smoking Status: Tobacco use Status Tobacco use date assessed 04/30/24 04/30/24 09:03 Patient Tobacco Use Status Former Tobacco user 04/30/24 09:03 e-Cigarette/Vaping Use Never Used 04/30/24 09:03 PHQ-9: PHQ-9 Score PHQ-9: Total score 2 04/30/24 09:03 Depression Screening Interpretation: Negative Thrive Assessment: Date of Thrive Assessment Date Thrive assessed 04/30/24 04/30/24 09:03 Currently or been in a relationship where the following occur: No concerns reported Results AMB Hemoglobin A1c AMB Hemoglobin A1c 5.5 % Last Edit by Zurdo Kurtz CMA on 04/30/24 09:44 Results Reviewed Results Reviewed: Laboratory Last Values Hgb A1c (Clinic) 5.5 % (4.0-6.0) 04/30/24 09:43 Coding Level of Care Code Est Pt Level 3 (75201) Diagnoses Diabetes E11.9 Additional Codes YEN-7 Assessment Billing - YEN-7 Assessment Tool: YEN-7 Assessment 77743 ([id number]) PHQ-9 - 15665 - PHQ-9 Billing: Yes ([id number]) Assessment & Plan Assessment & Plan (1) Diabetes: Code(s): E11.9 - Type 2 diabetes mellitus without complications Category: Medical Plan . Orders: Orders Comprehensive [place]. Panel Fast Today E11.9 - Type 2 diabetes mellitus without complications UA CC w/rflx Micro + Cult Today E11.9 - Type 2 diabetes mellitus without complications Lipid Panel Today E11.9 - Type 2 diabetes mellitus without complications AMB Hemoglobin A1c Today Z13.9 - Encounter for screening, unspecified Complete Blood Count Auto Diff Today E11.9 - Type 2 diabetes mellitus without complications TSH reflex Free T4 Today E11.9 - Type 2 diabetes mellitus without complications Microalbumin, Random (w Creat) Today E11.9 - Type 2 diabetes mellitus without complications Medications: Refilled atorvastatin 10 mg PO DAILY 90 days 90 tabs 1RF losartan 50 mg PO DAILY 90 days 90 tabs 1RF I10 - Essential (primary) hypertension sennosides (senna) 8.6 mg PO BEDTIME PRN 30 caps 5RF constipation
[2024-04-30 09:02] VITALS: BP 118/68; PULSE 63; O2SAT 98; BMI 30.1
== END 2024-04-30 10:38 | disposition home or self-care (01) ==
PROVIDERS: PCP Nurse Practitioner Family; Visit Provider Nurse Practitioner Family
DX: E11.9 Type 2 diabetes mellitus without complications (principal); Z13.9 Encounter for screening, unspecified

== ENCOUNTER → 2024-04-30 08:54 | Outpatient (BNVA) | payer MEDICARE, SELFPAY | PROVIDERS: PCP Nurse Practitioner Family; Visit Provider Nurse Practitioner Family | DX: E11.9 Type 2 diabetes mellitus without complications (principal); I10 Essential (primary) hypertension | CPT/HCPCS: 83036; 96127; 99212 ==

== ENCOUNTER 2024-08-30 08:47 | Outpatient (AMB) | payer MEDICARE, SELFPAY ==
--- NOTE | 2024-08-30 08:52 | A.OFFPC_ITS ---
Vital Signs 08/30/24 08:53 Height 5 ft 9 in Weight 202 lb BMI 29.8 BP 130/72 Blood Pressure Location Rt brachial Position Sitting Pulse 60 Pulse Source Pulse Oximeter Temp 98.0 F Temp Source Oral Pulse Oximetry (%) 96 Oxygen Delivery Method Room Air Intake Visit Reasons: 4 month follow up Staff Development Nurse Required: No Accompanied by: Self / Same As Patient Allergies No Known Allergies [No Known Allergies*] Allergy (Verified 08/30/24 08:53) Medication List - Last Reconciled 08/30/24 by AN Alba- aspirin (Adult Aspirin Regimen) 81 mg PO DAILY atorvastatin 10 mg PO DAILY 90 days blood-glucose meter (FreeStyle Lite Meter kit) As directed docusate sodium (Colace) 200 mg (2 x 100 mg) PO BEDTIME losartan 50 mg PO DAILY 90 days sennosides (senna) 8.6 mg PO BEDTIME PRN tamsulosin 0.4 mg PO DAILY 90 days Tobacco use date assessed: 08/30/24 Fall risk assessment: No Falls in past year Last assessed Fall Risk: 08/30/24 Dental Screening Dental Screen Date: 04/30/24 HPI 4 month follow up HPI Details Chief Complaint The patient presents for a follow-up regarding diabetes management. History of Present Illness The patient is a 78-year-old male presenting for diabetes follow-up. His diabetes management appears stable as demonstrated by an A1c level of 5.3%. The patient denies symptoms commonly associated with diabetes, including neuropathy, polyuria, and polydipsia. Eye examinations have been kept current, adhering to recommended guidelines. Continued attention to symptom monitoring and periodic check-ups informs his ongoing management. Social History Health Maintenance - Eye examination is up to date. - A1c level today is 5.3%, indicating ex cellent glycemic control. Review of Systems - Neurological: Denies neuropathy. - Genitourinary: Denies polyuria. - General: Denies polydipsia. Physical Exam General: Cooperative, healthy appearing, comfortable, no acute distress and well developed, obese Orientation: Patient oriented x3 Limitations: No limitations Head: Normal to inspection Ears: Hearing grossly normal bilaterally Nose: Normal external nose present Face and sinus: Normal facial exam Eyes: Appearance normal, both eyes and all related structures Neck: Normal visual inspection and Yes full ROM Respiratory: Normal respiratory effort and able to speak in complete sentences. Clear to auscultation bilaterally Cardiovascular: Regular rate and rhythm. Normal S1 and S2 GI: Normal to inspection. Soft to palpation and nontender Skin: No rashes or lesions noted Neuro: Patient oriented x3 Extremities: Positive sensation with use of monofilament of feet, feet were intact bilaterally Results - Labs: A1c level today is 5.3%. Plan 5.3%. He denies neuropathy, polyuria, or polydipsia. The current management strategy, including medication and lifestyle adjustments, will remain in place. The patient?s recent eye examination is up to date, and ongoing monitoring will continue in accordance with diabetes care guidelines. Encouraged to get labs drawn in the near future. Discussion Notes During our discussion, I informed the patient about the positive outcome of his current diabetes management, particularly the A1c level of 5.3%, which indicates good control. I reiterated the importance of maintaining routine check-ups and adhering to current treatment regimens. I explained that ongoing symptom surveillance and regular eye exams are crucial to prevent complications. I advised that we would continue the present treatments without modification, as the patient's condition is stable. Patient Instructions - Continue current diabetes management a s advised. - Maintain regular monitoring of blood s ugar levels. - Keep all scheduled follow-up appointme nts. - Ensure ongoing eye exams as recommende d. - Report any new symptoms, such as fatig ue, neuropathy, or changes in urination. [facility] Medical History Constipation Hyperbilirubinemia Obesity Depression with anxiety Renal cyst, left Diabetes [place] disease Surgical History No pertinent past surgical history Family History Father Kidney failure Heart failure Mother No problems noted. Brother Diabetes mellitus HTN (hypertension) Brother No problems noted. Brother No problems noted. Sister No problems noted. Daughter No problems noted. 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 Cognitive needs: No Hearing needs: No Vision needs: Yes Questionnaire Thrive Questionnaire Date Thrive assessed: 04/30/24 I am a: Patient What is your living situation today?: I have a steady place to live Within the past 12 months, did the food you bought not last and you didn't have the money to get more?: Never true Within the past 12 months, did you worry whether your food would run out before you got money to buy more?: Never true Do you have trouble paying for medicines?: No Do you have trouble getting transportation to medical appointments?: No Do you have trouble paying your heating and electricity bill?: No Do you have trouble taking care of your child, family member or friend?: No Do you have trouble with day-to-day activities such as bathing, preparing meals, shopping, managing finances, etc.?: No Are you currently unemployed and looking for a job?: No Are you interested in more education?: No Please select the resources that you would like help with: None Currently or been in a relationship where the following occur: No concerns reported THRIVE Score: 0 YEN-7 AMB Questionnaire YEN-7 Date YEN - 7 assessed: 04/30/24 Source: Developed by Drs. Amando Melendez, Liza Cano, Mamadou Siu and colleagues, with an educational la from [employer]. Physical exam (Primary Care) Vital Signs: Last Vital Signs Temp 98.0 F 08/30/24 08:53 Pulse 60 08/30/24 08:53 BP 130/72 08/30/24 08:53 Pulse Ox 96 08/30/24 08:53 Oxygen Delivery Method Room Air 08/30/24 08:53 BMI result Body Mass Index 29.8 Tobacco/Smoking Status: Tobacco use Status Tobacco use date assessed 08/30/24 08/30/24 08:56 Patient Tobacco Use Status Former Tobacco user 08/30/24 08:56 e-Cigarette/Vaping Use Never Used 08/30/24 08:56 Thrive Assessment: Date of Thrive Assessment Date Thrive assessed 04/30/24 08/30/24 08:56 Currently or been in a relationship where the following occur: No concerns reported Results AMB Hemoglobin A1c AMB Hemoglobin A1c 5.3 % Last Edit by Zurdo Kurtz CMA on 08/30/24 09: 09 Results Reviewed Results Reviewed: Laboratory Last Values Hgb A1c (Clinic) 5.3 % (4.0-6.0) 08/30/24 09:02 Coding Level of Care Code Est Pt Level 3 (15005) Diagnoses Diabetes E11.9 Assessment & Plan Assessment & Plan (1) Diabetes: Code(s): E11.9 - Type 2 diabetes mellitus without complications Category: Medical Plan . Orders: Orders AMB Hemoglobin A1c Today Z13.9 - Encounter for screening, unspecified Medications: Refilled sennosides (senna) 8.6 mg PO BEDTIME PRN 30 caps 5RF constipation losartan 50 mg PO DAILY 90 tabs 1RF 90 days I10 - Essential (primary) hypertension atorvastatin 10 mg PO DAILY 90 tabs 1RF 90 days
[2024-08-30 08:53] VITALS: BP 130/72; PULSE 60; TEMP 36.7; O2SAT 96; BMI 29.8
--- OUTSIDE RECORDS SUMMARY | 2024-08-30 09:14 | XMS_ITS | Clinical Summary ---
Author Organization [employer] Address [address] [place] [address] [address] [place] [address] Care Team Providers Care Cooker Cleaner Name Role Phone Unavailable Primary Care Provider Unavailabl e Immunizations Immunization Administration Dates Next Due Influenza, seasonal, injectable, preservative fr ee 01/09/2024 Pfizer Covid-19 Vaccine 12+ 01/09/2024, Social History Tobacco Use Types Packs/Day Years Used Date Smoking Tobacco: Never Assessed Sex and Gender Information Value Date Recorded Sex Assigned at Male 02/17/2023 3:01 PM EDT Legal Sex Male 11:53 AM EDT Gender Identity Choose not to disclose 3 3:01 PM EDT Sexual Orientation Straight 02/17/2023 3: 01 PM EDT Plan of Treatment Health Maintenance Due Date Last Done Comments Depression Screening 1945 Lipid Panel 1945 SDOH Screening 1945 Alcohol/Substance Use Screening 1957 Tobacco Screening 1957 Hepatitis C Screening 11/11/1963 DTaP/Tdap/Td Vaccines (1 - Tdap) 1964 Pneumococcal Vaccine: 50+ Years (2 of 2 - PPSV23) 06/14/2019 06/14/2018 RSV Patients and Patients Aged 60 years or older (1 - 1-dose 75+ series) 2020 Zoster Vaccines Completed 06/18/2022, 03/15/2022 COVID-19 Vaccine Completed 01/09/2024, 05/2022, 03/01/2022, Additional history exists Influenza Vaccine Completed 01/09/2024, , 02/01/2022, Additional history exists HIB Vaccines Aged Out No longer eligi ble based on patient's age to complete this topic HPV Vaccines Aged Out No longer eligi ble based on patient's age to complete this topic Hepatitis A Vaccines Aged Out No long er eligible based on patient's age to complete this topic Hepatitis B Vaccines Aged Out No long er eligible based on patient's age to complete this topic IPV Vaccines Aged Out No longer eligi ble based on patient's age to complete this topic Meningococcal Vaccine Aged Out No iqra aron eligible based on patient's age to complete this topic RSV under 20 months Aged Out No longe r eligible based on patient's age to complete this topic Rotavirus Vaccines Aged Out No longer eligible based on patient's age to complete this topic Insurance [place] [address] SUPPLEMENTAL MEDICARE
== END 2024-08-30 09:11 | disposition home or self-care (01) ==
LOC: HO.HMCC 08:48
PROVIDERS: PCP Nurse Practitioner Family; Visit Provider Nurse Practitioner Family
DX: E11.9 Type 2 diabetes mellitus without complications (principal); Z13.9 Encounter for screening, unspecified

== ENCOUNTER → 2024-08-30 08:47 | Outpatient (BNVA) | payer MEDICARE, SELFPAY | PROVIDERS: PCP Nurse Practitioner Family; Visit Provider Nurse Practitioner Family | DX: E11.9 Type 2 diabetes mellitus without complications (principal) | CPT/HCPCS: 83036; 99212 ==

== ENCOUNTER 2024-10-10 08:33 | Outpatient (AMB) | payer MEDICARE, SELFPAY ==
--- OUTSIDE RECORDS SUMMARY | 2024-10-10 08:53 | XMS_ITS | Patient Health Record ---
[facility] [place] Address [address] [place] [address] Care Team Providers Care Mailer Name Role Phone Torey Valladares Primary Care Provider Unav ailovidio Jeyson Ashley Unavailable [phone] Reason For Referral No Information Medications Medication SIG (Take, Route, Fr equency, Duration) Notes Start Date End Date Status Lisinopril 10 MG 1 tablet Orally Once a day for 30 day(s) Active Tamsulosin HCl Activ e Eucerin . as directed External ly bid to feet for 30 days 03/19/2014 Active Aspirin 81 MG 1 tablet Orally Once a day for 30 day(s) Active Problems Problem Type SNOMED Code ICD Code Onset Dates Problem Status W/U Status Risk Notes Problem Tinea unguium (995020211) Tinea unguium (B35.1) Active confirmed Plan Of Treatment Pending Test Test Name Order Date [id number] NAIL, -02/20/2013 [id number] NAIL, -05/29/2013 [id number] NAIL, -09/04/2013 [id number] NAIL, -12/18/2013 [id number] NAIL, -03/19/2014 [id number] Plate 06/25/2014 33945-Frwjxdmy Plate 09/24/2014 26029-Lczxynzb Plate 12/31/2014 31770-Uauyejxr Plate 04/01/2015 31706-Bgbevorw Plate Each Additional 33679-Wfbuqgsn Plate Each Additional 19957-Rgcqjrsf Plate Each Additional 12/2014 64734-Ikzhkntv Plate Each Additional 01/2015 Insurance Providers Payer Name Payer Address Payer Phone Subscriber Number Group Number Insured Name Patient Relationship to Insured Coverage Start Date Coverage End Date Medicare National [employer] S[employer] [address] [place] [address] [id number] Hunter Gonzalez Self - patient is the insured [employer] [address] [place] [address] [phone] [id number] Hunter Gonzalez Self - patient is the insured Medical (General) History Medical History History ICD Code high blood pressure Surgical History Surgery Date(Month/Year) mole removal 07/2014
[2024-10-10 08:56] VITALS: BP 130/66; PULSE 76; TEMP 37.2; O2SAT 96; BMI 29.7
--- NOTE | 2024-10-10 08:56 | AM.OFFWIN_ITS ---
Intake Vital Signs 10/10/24 08:56 Height 5 ft 9 in Weight 201 lb 4 oz BMI 29.7 BP 130/66 Blood Pressure Location Lt brachial Position Sitting Pulse 76 Pulse Source Pulse Oximeter Temp 99 F Temp Source Oral Pulse Oximetry (%) 96 Oxygen Delivery Method Room Air Intake Visit Reasons: EP-lt side neck & shoulder pain Intake Note: Patient present with sharp pain on left side of neck and shoulder that started this morning Patient Tobacco Use Status: Former Tobacco user Allergies No Known Allergies (No Known Allergies*) Allergy (Verified 10/10/24 08:59) HPI HPI Comments History of Present Illness Details Patient is a 78-year-old male being of neck pain on the left side since 01:00 this morning. He states he woke up and had difficulty moving his neck. He denies any injury. He denies any unusual movements of his neck yesterday. He tells me he did have a dentist appointment but that was 10 days ago and had to keep his head in a certain position for a very long time but nothing since then. He took some Tylenol with mild relief. He tells me it hurts to look to the right. He did not try any ice or heat or ibuprofen yet. He denies any fevers. [facility] Medical History Constipation Hyperbilirubinemia Obesity Depression with anxiety Renal cyst, left Diabetes [place] disease Surgical History No pertinent past surgical history Family History Father Kidney failure Heart failure Mother No problems noted. Brother Diabetes mellitus HTN (hypertension) Brother No problems noted. Brother No problems noted. Sister No problems noted. Daughter No problems noted. 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 occupational status: retired Current occupation: [employer] Cognitive needs: No Hearing needs: No Vision needs: Yes Review of Systems Const All systems reviewed & are unremarkable except as noted in HPI and below Physical Exam Vital Signs: Last Vital Signs Temp 99 F 10/10/24 08:56 Pulse 76 10/10/24 08:56 BP 130/66 10/10/24 08:56 Pulse Ox 96 10/10/24 08:56 Oxygen Delivery Method Room Air 10/10/24 08:56 BMI result Body Mass Index 29.7 Const General: cooperative, healthy appearing and comfortable Orientation/consciousness: patient oriented x3 HEENT Head: Yes normal to inspection and Yes normocephalic General nose exam: Normal external nose present Face and sinus: Yes normal facial exam Eyes General: appearance normal, both eyes and all related structures Resp Effort & Inspection: normal respiratory effort and able to speak in complete sentences General: Yes no CVA tenderness Back/Spine/Pelvis Back: no CVA tenderness Cervical Spine: cervical ROM normal, cervical muscular tenderness (left ), pain with cervical ROM, cervical spasm (left) and No Cervical spine tenderness Thoracic/Lumbar Spine: thoracic and lumbar spine normal to inspection, No thoracic spinal tenderness and No lumbar spinal tenderness Neuro General: patient oriented x3 Assessment & Plan Assessment & Plan (1) Cervical paraspinous muscle spasm: Code(s): M62.838 - Other muscle spasm Plan: Recommended patient start with one 5mg cyclobenzaprine, he may take 2 if needed. However I did caution him not to drink alcohol or drive a motor vehicle while taking this medication. I also cautioned him on getting up in the middle of the night while taking this medication and using extra caution when ambulating because he will be more tired or groggy than normal. Also recommended using heat on the area as well as 600 mg of ibuprofen every 6 hours. If no improvement in his pain over the coming week, he should follow up here or with his PCP. Medications: New cyclobenzaprine 5 mg PO Q8H PRN 20 tabs 0RF Muscle Spasm Coding Level of Care Code Est Pt Level 3 (29269) Diagnoses Cervical paraspinous muscle spasm M62.838
== END 2024-10-10 09:48 | disposition home or self-care (01) ==
PROVIDERS: PCP Nurse Practitioner Family; Visit Provider Physician Assistant
DX: M62.838 Other muscle spasm (principal)

== ENCOUNTER → 2024-10-10 08:33 | Outpatient (BNVA) | payer MEDICARE, SELFPAY | PROVIDERS: PCP Nurse Practitioner Family; Visit Provider Physician Assistant | DX: M62.838 Other muscle spasm (principal) | CPT/HCPCS: 99212 ==

== ENCOUNTER 2025-01-24 08:51 | Outpatient (REF) | payer MEDICARE, SELFPAY ==
--- NOTE | ~2025-01-24 | US_ITS ---
CLINICAL HISTORY: R31.29 - Other microscopic hematuria US Renal Comparison: None provided Findings: Right kidney normal size and echotexture, 10.9 cm length. Left kidney normal size and echotexture, 11.6 cm length. There are bilateral Bosniak 1 cysts. No hydronephrosis of either kidney. Normal color Doppler. IMPRESSION: 1. No acute findings. This document has been electronically signed by: Telly Nicole MD on 01/25/2025 08:48:39
== END 2025-01-24 08:52 | disposition home or self-care (01) ==
LOC: HO.HMGCX 08:51
PROVIDERS: PCP Nurse Practitioner Family; Visit Provider Nurse Practitioner Family
DX: R31.29 Other microscopic hematuria (principal); N28.1 Cyst of kidney, acquired
CPT/HCPCS: 76775

== ENCOUNTER → 2025-01-24 08:57 | Outpatient (BNV) | payer MEDICARE, SELFPAY | PROVIDERS: PCP Nurse Practitioner Family; Visit Provider Specialist | DX: R31.29 Other microscopic hematuria (principal) | CPT/HCPCS: 76775 ==

== ENCOUNTER 2025-01-30 09:19 | Outpatient (REF) | payer MEDICARE, SELFPAY ==
--- OUTSIDE RECORDS SUMMARY | 2025-01-30 10:27 | XMS_ITS | Patient Health Record ---
Author Organization [facility] [place] Address [address] [place] [address] Care Team Providers Care Barrel Polisher Name Role Phone Torey Valladares Primary Care Provider Unav ailovidio Jeyson Ashley Unavailable [phone] Reason For Referral No Information Medications Medication SIG (Take, Route, Fr equency, Duration) Notes Start Date End Date Status Lisinopril 10 MG 1 tablet Orally Once a day; Duration: 30 day(s) Active Tamsulosin HCl Activ e Eucerin . as directed External ly bid to feet; Duration: 30 days 03/19/2014 Active Aspirin 81 MG 1 tablet Orally Once a day; Duration: 30 day(s) Active Problems Problem Type SNOMED Code ICD Code Onset Dates Problem Status W/U Status Risk Notes Problem Tinea unguium (955351776) Tinea unguium (B35.1) Active confirmed Plan Of Treatment Pending Test Test Name Order Date [id number] NAIL, -02/20/2013 [id number] NAIL, -05/29/2013 [id number] NAIL, 04-2209/04/2013 [id number] NAIL, -12/18/2013 [id number] NAIL, 04-2203/19/2014 67538-Vehkswhc Plate 06/25/2014 47930-Krchjfzy Plate 09/24/2014 80179-Anbrqydk Plate 12/31/2014 93846-Iqgdbomy Plate 04/01/2015 19714-Flnzpzpu Plate Each Additional 49681-Udgkiqpp Plate Each Additional 00935-Zfphnkwu Plate Each Additional 12/2014 85317-Skmqgtro Plate Each Additional 01/2015 Insurance Providers Payer Name Payer Address Payer Phone Subscriber Number Group Number Insured Name Patient Relationship to Insured Coverage Start Date Coverage End Date Medicare National Govt Svcs Inc [address] [place] [address] [id number] Hunter Gonzalez Self - patient is the insured [employer] [address] [place] [id number] [phone] [id number] Hunter Gnozalez Self - patient is the insured Medical (General) History Medical History History ICD Code high blood pressure Surgical History Surgery Date(Month/Year) mole removal 07/2014
--- OUTSIDE RECORDS SUMMARY | 2025-01-30 10:27 | XMS_ITS | Clinical Summary ---
Author Organization [employer] Address [address] [place] [address] [address] [place] [address] Care Team Providers Care Electric Track Switch Maintainer Name Role Phone Unavailable Primary Care Provider Unavailabl e Immunizations Immunization Administration Dates Next Due Influenza, seasonal, injectable, preservative fr ee 01/09/2024 Pfizer Covid-19 Vaccine 12+ 01/09/2024, 3 Social History Tobacco Use Types Packs/Day Years [...] older (1 - 1-dose 75+ series) 2020 COVID-19 Vaccine ( season) 2024 01/09/2024, 02/17/2023, 03/01/2022, Additional history exists Influenza Vaccine (#1) 2024 4, 01/03/2023, 02/01/2022, Additional history exists Zoster Vaccines Completed 06/18/2022, 03/15/2022 HIB Vaccines Aged Out No longer eligi [...] patient's age to complete this topic Meningococcal B Vaccine Aged Out No l onger eligible based on patient's age to complete this topic Meningococcal Vaccine Aged Out No iqra aron eligible based on patient's age to complete this topic RSV under 20 months Aged Out No longe r eligible based on patient's age to complete this topic Rotavirus Vaccines Aged Out No longer eligible based on patient's age to complete this topic [place] [place] [address] SUPPLEMENTAL MEDICARE
== END 2025-01-30 09:20 | disposition home or self-care (01) ==
LOC: HO.HMGCX 09:19
PROVIDERS: PCP Nurse Practitioner Family; Visit Provider Nurse Practitioner Family
DX: Z13.89 Encounter for screening for other disorder (principal)

== ENCOUNTER 2025-04-02 07:33 | Outpatient (AMB) | payer MEDICARE, SELFPAY ==
--- NOTE | 2025-04-02 07:32 | A.OFFVIS_ITS ---
Intake Visit Reasons: US f/u Intake Note: Patient presents today for follow up on: renal cyst, ultrasound results Imaging Completed: RENAL US 01/25/25 Urology Medications: Tamsulosin Blood Thinner: Aspirin NKDA Santa'S Helper Required: No Accompanied by: Self / Same As Patient Allergies No Known Allergies (No Known Allergies*) Allergy (Verified 04/02/25 07:54) Medication List - Last Reconciled 04/02/25 by SHREICE aPtrick aspirin (Adult Aspirin Regimen) 81 mg PO DAILY atorvastatin 10 mg PO DAILY 90 days blood-glucose meter (FreeStyle Lite Meter kit) As directed cyclobenzaprine 5 mg PO Q8H PRN losartan 50 mg PO DAILY 90 days sennosides (senna) 8.6 mg PO BEDTIME PRN tamsulosin 0.4 mg PO DAILY 90 days HPI Comments Details: Hunter is a very pleasant 79-year-old male patient of Dr. Helton. He has a past medical history of constipation, depression, anxiety, diabetes, Gilbert's disease, hyperbilirubinemia, and obesity. He is being followed up today via telehealth for his bilateral renal cyst and microscopic hematuria. In discussion with the patient today reports to be doing and feeling well. He denies having had any bothersome urinary issues or concerns since his last office visit here over 1 year ago. He reports to be happy with his current voiding parameters on 0.4 mg of Flomax daily. Recent renal imaging results reviewed with the patient today. Renal ultrasound 02/09 noted bilateral kidneys with benign simple appearing cyst that require no imaging follow-up per radiology report. No hydronephrosis and or renal calculi noted bilaterally. When asked patient denies urinary urgency, urinary frequency, incontinence, nocturia, hematuria, dysuria, foul smelling urine, changes to urinary stream, flank pain, fever, and or chills. Patient with a history of microscopic hematuria previous urine cytology results reviewed with the patient today. Unable to assess urinalysis as this is a telehealth appointment. We did discuss obtaining urinalysis and cytology with updated PSA. He is aware and agreeable. Patient denies any known chemical exposure. He does report a smoking history h owever reports have quit approximately 15 years ago. We discussed reasons for blood in the urine may include but are not limited to kidney stones, cancer in the urinary tract, BPH, kidney stone disease or inflammatory conditions of the urinary tract. I have discussed workup to include cystoscopy evaluation however he declines at this time. In review of patient's chart it appears PSAs are as follows... 07/05 0.9, 11/04 0.7, 11/05 1.1, 10/07 0.8, 10/08 1.5 02/08 Urine Cytology: Negative for high-grade urothelial carcinoma PFSH Medical History Constipation Hyperbilirubinemia Obesity Depression with anxiety Renal cyst, left Diabetes [place] disease Surgical History No pertinent past surgical history Family History Father Kidney failure Heart failure Mother No problems noted. Brother Diabetes mellitus HTN (hypertension) Brother No problems noted. Brother No problems noted. Sister No problems noted. Daughter No problems noted. 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 Cognitive needs: No Hearing needs: No Vision needs: Yes Review of Systems Const All systems reviewed & are unremarkable except as noted in HPI and below Physical Exam Const General: cooperative Orientation/consciousness: patient oriented x3 Resp Effort & Inspection: able to speak in complete sentences Neuro General: patient oriented x3 Psych Speech and movement: Clear speech present Attitude: cooperative Thought content: Normal thought content present Insight: Fair insight present (Psych) Judgement: Fair judgement present (Psych) Telehealth Telehealth Telehealth Platform: De[employer] Location of provider rendering services: practice address Location of patient: address on file Patient Identification confirmed using: Name, : Yes Telehealth method: voice only Patient verbally consented to treatment: Yes Patient verbally consented to billing insurance company: Yes Patient informed of any privacy concerns related to visit: Yes Minutes spent on Phone/Video with Pt.: 15 Results Reviewed Results Reviewed: Date of Service: 01/24/25 Procedure(s): US renal BI Findings: Right kidney normal size and echotexture, 10.9 cm length. Left kidney normal size and echotexture, 11.6 cm length. There are bilateral Bosniak 1 cysts. No hydronephrosis of either kidney. Normal color Doppler. IMPRESSION: 1. No acute findings. Assessment & Plan Assessment & Plan (1) Microhematuria: Code(s): R31.29 - Other microscopic hematuria Category: Medical (2) Bilateral renal cysts: Code(s): N28.1 - Cyst of kidney, acquired Category: Medical Plan Most recent renal imaging results reviewed with the patient today; as noted above. We did discuss obtaining more recent PSA as well as urinalysis and urine cytology given patient's history of microscopic hematuria. He currently denies any bothersome urinary issues or concerns. He reports be happy with current voiding parameters. All questions were answered. We will continue with surveillance monitoring. Continue Flomax as discussed and prescribed; refill provided. Will obtain PSA now. Will obtain renal ultrasound in 1 year as well as PSA. Follow-up in 1 year with imaging, labs, and PVR; or sooner with any issues, concerns, and or questions. Orders: Orders UA and rflx microscopic Today R31.29 - Other microscopic hematuria Urine Cytology Today R31.29 - Other microscopic hematuria US renal BI 1 Year N28.1 - Cyst of kidney, acquired Prostate Specific Antigen 1 Year Z12.5 - Encounter for screening for malignant neoplasm of prostate Prostate Specific Antigen Today Z12.5 - Encounter for screening for malignant neoplasm of prostate Medications: Refilled tamsulosin 0.4 mg PO DAILY 90 caps 4RF 90 days Patient Instructions: The patient had an opportunity to ask questions regarding the treatment plan. All questions were answered. Physical exam, labs, and imaging were discussed and reviewed in detail. As well as risks, benefits, and discussion of treatment choices. No major barriers to understanding were identified. The patient expressed understanding and agreement with the above treatment plan. The patient was made aware they should contact our office by phone for worsening of their current condition, the appearance of new symptoms, or with any questions or concerns. Compliance is encouraged with any medications and follow up testing that is ordered. It is a privilege to be allowed the opportunity to participate in? your urological care.? Again, if you have any questions or concerns If you have any questions or concerns please do not hesitate to contact me. The office is [phone]. This note is constructed using voice recognition software. While every effort has been made to ensure accuracy mottler operator errors may have been included. Yours sincerely, SHERICE Patrick Coding Level of Care Code Tele Est Pt Level 3 (13034) Add On Problem Visit Only Diagnoses Microhematuria R31.29 Bilateral renal cysts N28.1
--- OUTSIDE RECORDS SUMMARY | 2025-04-02 07:36 | XMS_ITS | Patient Health Record ---
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 confirmed Plan Of Treatment Pending Test Test Name Order Date [id number] NAIL, -02/20/2013 [id number] NAIL, -05/29/2013 [id number] NAIL, 04-2209/04/2013 [id number] NAIL, -12/18/2013 [id number] NAIL, 04-2203/19/2014 [id number] Plate 06/25/2014 [id number] Plate 09/24/2014 09914-Iuowritx Plate 12/31/2014 95693-Pjbwqfvi Plate 04/01/2015 77316-Gfbvsskl Plate Each Additional 35374-Nuycuuyn Plate Each Additional 94781-Jdaokqat Plate Each Additional 12/2014 82159-Jttdcmpf Plate Each Additional 01/2015 Insurance Providers Payer Name Payer Address Payer Phone Subscriber Number Group Number Insured Name Patient Relationship to Insured Coverage Start Date Coverage End Date Medicare National Govt Sv[employer] [address] [place] [address] [id number] Hunter Gonzalez Self - patient is the insured [employer] [address] [place] [phone] [id number] Hunter Gonzalez Self - patient is the insured Medical (General) History Medical History History ICD Code high blood pressure Surgical History Surgery Date(Month/Year) mole removal 07/2014
--- OUTSIDE RECORDS SUMMARY | 2025-04-02 07:36 | XMS_ITS | Clinical Summary ---
Author Organization [employer] Address [address] [place] [address] [address] [place] [address] Care Team Providers Care Rework Operator Name Role Phone Unavailable Primary Care Provider [...] Vaccine: 50+ Years (2 of 2 - PCV20 or PCV21) 06/14/2019 06/14/2018 RSV Patients and Patients Aged [...] patient's age to complete this topic [place] [address] [place] [address] SUPPLEMENTAL MEDICARE
== END 2025-04-02 08:23 | disposition home or self-care (01) ==
LOC: HO.HUSH 07:33
PROVIDERS: PCP Nurse Practitioner Family; Visit Provider Nurse Practitioner Family
DX: R31.29 Other microscopic hematuria (principal); N28.1 Cyst of kidney, acquired
CPT/HCPCS: 99213; G2211

== ENCOUNTER 2025-04-03 09:02 | Outpatient (REF) | payer MEDICARE, SELFPAY ==
--- OUTSIDE RECORDS SUMMARY | 2025-04-03 09:55 | XMS_ITS | Clinical Summary ---
Author Organization [employer] Address [address] [place] [address] [address] [place] [address] Care Team Providers Care Metal Mover Name Role Phone Unavailable Primary Care Provider [...] patient's age to complete this topic [place] [address] SUPPLEMENTAL MEDICARE
--- OUTSIDE RECORDS SUMMARY | 2025-04-03 09:55 | XMS_ITS | Patient Health Record ---
[facility] [place] Address [address] [place] [address] Care Team Providers Care Feed Elevator Worker Name Role Phone Torey Valladares Primary Care Provider Unav ailovidio Jeyson Ashley Unavailable [phone] Reason For Referral No Information Medications Medication [...] W/U Status Risk Notes Problem Tinea unguium ([id number]) Tinea unguium (B35.1) Active confirmed Plan Of Treatment Pending Test Test Name Order Date [id number] NAIL, -02/20/2013 [id number] NAIL, -05/29/2013 [id number] NAIL, 04-2209/04/2013 [id number] NAIL, -12/18/2013 [id number] NAIL, 04-2203/19/2014 64992-Maexorcr Plate 06/25/2014 19833-Qatgdxjt Plate 09/24/2014 [id number]-Hiswmbut Plate 12/31/2014 57449-Yvcleroq Plate 04/01/2015 09726-Qaivfkml Plate Each Additional 88201-Ijgycdvg Plate Each Additional 87178-Rhnqmrma Plate Each Additional 12/2014 79081-Ksmpwbfo Plate Each Additional 01/2015 Insurance Providers Payer Name Payer Address Payer Phone Subscriber Number Group Number Insured Name Patient Relationship to Insured Coverage Start Date Coverage End Date Medicare National Govt Svcs Inc [address] [place] [address] [id number] Hunter Gonzalez Self - patient is the insured [employer] [address] [place] [phone] [id number] Hunter Gonzalez Self - patient is the insured Medical (General) History Medical History History ICD Code high blood pressure Surgical History Surgery Date(Month/Year) mole removal 07/2014
[2025-04-03 10:38] LABS: MANUAL DIFF FLAG NO
[2025-04-03 10:45] LABS: Appearance Urine Clear; Glucose Urine UA Negative (Negative); PH 6.0 (5.0-9.0); Specific Gravity - Urine 1.025 (1.005-1.025); UMIC TRIGGER UACC YES
[2025-04-03 10:55] LABS: Hematocrit 42.1 % (42.0-52.0); Hemoglobin 13.8 g/dl (14.0-18.0); Imm Gran Abs Auto 0.01 X10*3/uL (0.00-0.03); Imm Gran Pct Auto 0.2 % (0.0-0.4); Lymphocytes Absolute Auto 1.6 X10*3/uL (1.2-4.9); Mean Corpuscular HGB Conc 32.8 g/dl (31.0-36.0); Mean Corpuscular Hemoglobin 31.2 pg (27.0-33.0); Mean Corpuscular Volume 95.0 fL (80.0-98.0); NRBC Abs Auto 0.000 X10*3/uL (0.0-0.012); NRBC Pct Auto 0.0 /100WBC (0.0-0.2); Platelet Count 158 X10*3/uL (160-400); Red Blood Count 4.43 X10*6/uL (4.60-5.80); White Blood Count 6.1 X10*3/uL (4.8-10.8)
[2025-04-03 11:14] LABS: Alanine Aminotransferase 13 U/L (0-40); Albumin Level 4.3 g/dL (3.5-5.0); Alkaline Phosphatase 55 U/L (39-117); Anion Gap 13 (12-20); Aspartate Amino Transferase 25 U/L (5-37); Blood Urea Nitrogen 11 mg/dL (9-16); Calcium 9.3 mg/dL (8.4-10.2); Carbon Dioxide 27 mmol/L (22-29); Chloride 106 mmol/L (96-108); Cholesterol 118 mg/dL (<200); Estimated Glomerular Filt Rate > 60; HDL Cholesterol 61 mg/dL (>40); Potassium 4.1 mmol/L (3.3-5.1); Sodium 142 mmol/L (135-145); Total Protein 7.2 g/dL (6.5-8.0); Triglycerides 78 mg/dL (<150)
[2025-04-03 11:27] LABS: Microalbum/Creatinine Ratio Ur 3.6 ug/mg cr (<30)
[2025-04-03 11:36] LABS: Prostate Specific Antigen 0.77 ng/mL (<0.05-4.0)
== END 2025-04-03 09:03 | disposition home or self-care (01) ==
LOC: HO.HMGCLDS 09:02
PROVIDERS: PCP Nurse Practitioner Family; Referring Provider Nurse Practitioner Family; Visit Provider Nurse Practitioner Family
DX: E11.9 Type 2 diabetes mellitus without complications (principal); R31.29 Other microscopic hematuria; Z12.5 Encounter for screening for malignant neoplasm of prostate
CPT/HCPCS: 36415; 80053; 80061; 81001; 82043; 82570; 83036; 84153; 84443; 85025; 88112

== ENCOUNTER 2025-04-04 08:18 | Outpatient (AMB) | payer MEDICARE, SELFPAY ==
[2025-04-04 08:24] VITALS: BP 126/70; PULSE 70; RESP 16; O2SAT 100; BMI 28.9
--- NOTE | 2025-04-04 08:24 | A.OFFPC_ITS ---
Vital Signs 04/04/25 08:24 Height 5 ft 9 in Weight 196 lb BMI 28.9 BP 126/70 Blood Pressure Location Lt brachial Position Sitting Respiration 16 Pulse 70 Pulse Source Pulse Oximeter Pulse Oximetry (%) 100 Oxygen Delivery Method Room Air Intake Visit Reasons: 6 months f/up [employer] Investigator Required: No Accompanied by: Self / Same As Patient Allergies No Known Allergies (No Known Allergies*) Allergy (Verified 04/02/25 07:54) Tobacco use date assessed: 08/30/24 Dental Screening Dental Screen Date: 04/30/24 HPI 6 months f/up HPI Details Chief Complaint The patient presents for a follow-up visit for management of diabetes. History of Present Illness The patient is a 79 year old male presenting for a follow-up visit for diabetes. He reports doing well, with a recent A1c of 5.4. His microalbumin is up to date and within normal limits, and his eye exams are also current. For hyperlipidemia, he is on a statin, and his LDL is 42. He is also on an ARB. The patient has a history of Gilbert's syndrome with a recent bilirubin of 1.9 and denies any abdominal pain. He sees a urologist for monitoring of his PSAs and microscopic hematuria. He denies any neuropathy, fever, chills, chest pain, or increased shortness of breath. did mention RSV vaccinations Social History Health Maintenance - He is under the care of urology for mo nitoring of PSAs and microscopic hematuria. - His microalbumin screening is up to da te and within normal limits. - His eye exams are up to date. Review of Systems - Constitutional: Denies fever and chill s. - Cardiovascular: Denies chest pain. - Respiratory: Denies increased shortnes s of breath. - Gastrointestinal: Denies abdominal nicolasa n. - Neurological: Denies neuropathy. Physical Exam General: Cooperative, healthy appearing, comfortable, no acute distress and well developed Orientation: Patient oriented x3 Limitations: No limitations Head: Normal to inspection Ears: Hearing grossly normal bilaterally Nose: Normal external nose present Face and sinus: Normal facial exam Eyes: Appearance normal, both eyes and all related structures Neck: Normal visual inspection and Yes full ROM Respiratory: Normal respiratory effort and able to speak in complete sentences. Clear to auscultation bilaterally Cardiovascular: Regular rate and rhythm. Normal S1 and S2 GI: Normal to inspection. Soft to palpation and nontender Skin: No rashes or lesions noted Neuro: Patient oriented x3 Extremities: Normal to inspection, feet were intact bilaterally with slight callus formation on the left big toe medial aspect Results - Labs: - A1c: 5.4. - Microalbumin: Within normal limits. - LDL: 42. - Bilirubin: 1.9. Plan 1. Diabetes Mellitus The patient's diabetes is well-controlled with an A1c of 5.4. Continue current management and follow up in 6 months. 2. Microscopic Hematuria The patient will continue to follow up with urology for monitoring of microscopic hematuria. 3. Elevated Prostate-Specific Antigen (P sa) The patient will continue to follow up with urology for management and monitoring of his PSAs. 4. Gilbert's Syndrome The patient has a slight elevation of bilirubin at 1.9 and denies abdominal pain. No intervention is needed at this time; continue to monitor. 5. Hyperlipidemia The patient is on a statin with an LDL of 42. Continue current medication. Discussion Notes I discussed with the patient that his diabetes remains well-controlled, as evidenced by his excellent A1c of 5.4. We reviewed his lab work, noting his LDL is well-managed at 42 on a statin. I advised him to continue his scheduled follow-ups with urology for his PSA and microscopic hematuria. A follow-up appointment in this office is scheduled for 6 months. Patient Instructions - Continue to take your current medicati ons as prescribed, including your ARB and statin. - Continue to follow up with your urolog y specialist for monitoring of your PSA levels and the microscopic blood in your urine. - Please return for a follow-up visit in 6 months. COUNTS INCLUDE 234 BEDS AT THE [facility] Medical History Constipation Hyperbilirubinemia Obesity Depression with anxiety Renal cyst, left Diabetes [place] disease Surgical History No pertinent past surgical history Family History Father Kidney failure Heart failure Mother No problems noted. Brother Diabetes mellitus HTN (hypertension) Brother No problems noted. Brother No problems noted. Sister No problems noted. Daughter No problems noted. 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 Amando Melendez, Liza Cano, Mamadou Siu and colleagues, with an educational la from [employer]. Physical exam (Primary Care) Vital Signs: Last Vital Signs Pulse 70 04/04/25 08:24 Resp 16 04/04/25 08:24 BP 126/70 04/04/25 08:24 Pulse Ox 100 04/04/25 08:24 Oxygen Delivery Method Room Air 04/04/25 08:24 BMI result Body Mass Index 28.9 Tobacco/Smoking Status: Tobacco use Status Tobacco use date assessed 08/30/24 04/04/25 08:29 Patient Tobacco Use Status Former Tobacco user 04/04/25 08:29 e-Cigarette/Vaping Use Never Used 04/04/25 08:29 Thrive Assessment: Date of Thrive Assessment Date Thrive assessed 04/30/24 04/04/25 08:29 Coding Level of Care Code Est Pt Level 3 (83458) Diagnoses Diabetes E11.9 Hyperbilirubinemia E80.6 Microhematuria R31.29 Assessment & Plan Assessment & Plan (1) Diabetes: Code(s): E11.9 - Type 2 diabetes mellitus without complications Category: Medical (2) Hyperbilirubinemia: Code(s): E80.6 - Other disorders of bilirubin metabolism Category: Medical (3) Microhematuria: Code(s): R31.29 - Other microscopic hematuria Category: Medical Plan . Orders: Orders Hemoglobin A1c 04/03/25 E11.9 - Type 2 diabetes mellitus without complications
--- OUTSIDE RECORDS SUMMARY | 2025-04-04 08:34 | XMS_ITS | Clinical Summary ---
Author Organization [employer] Address [address] [place] [address] [address] [place] [address] Care Team Providers Care Advocacy Director Name Role Phone Unavailable Primary Care Provider [...] patient's age to complete this topic [place] [address] [place] [address] SUPPLEMENTAL MEDICARE
== END 2025-04-04 08:42 | disposition home or self-care (01) ==
LOC: HO.HMCC 08:19
PROVIDERS: PCP Nurse Practitioner Family; Visit Provider Nurse Practitioner Family
DX: E11.9 Type 2 diabetes mellitus without complications (principal); E80.6 Other disorders of bilirubin metabolism; R31.29 Other microscopic hematuria

== ENCOUNTER → 2025-04-04 08:18 | Outpatient (BNVA) | payer MEDICARE, SELFPAY | PROVIDERS: PCP Nurse Practitioner Family; Visit Provider Nurse Practitioner Family | DX: E11.9 Type 2 diabetes mellitus without complications (principal); R31.29 Other microscopic hematuria; E80.6 Other disorders of bilirubin metabolism; E78.5 Hyperlipidemia, unspecified; R97.20 Elevated prostate specific antigen [PSA] | CPT/HCPCS: 99212 ==